=== PATIENT | female | born 1945 | race Caucasian/White ===

== ENCOUNTER 2018-09-09 01:21 | Inpatient (IN) ==
[2018-09-09] MEDS ORDERED: SODIUM CHLORIDE 0.9% 1,000 ML IV STA (01:48)
[2018-09-09 01:56] LABS: Basophils # 0.1 10*3/uL (0.0-0.2); Basophils % 0.2 % (0.0-0.8); Eosinophils # 0.8 10*3/uL (0.0-0.87); Eosinophils % 3.9 % (0.00-10.9); Hematocrit 22.6 VOL% (35.7-47.0); Hemoglobin 6.5 GM/DL (12.0-16.0); Immature Granulocytes % 1.8 %; Immature Granulocytes Absolute 0.37 #; Lymphocytes # 1.5 10*3/uL (1.4-4.0); Lymphocytes % 7.4 % (21.3-54.2); Mean Corpuscular HGB Conc 28.8 GM/DL (32-36); Mean Corpuscular Hemoglobin 29 PG (27-34); Mean Corpuscular Volume 100.4 FL (87-102); Monocytes # 1.1 10*3/uL (0.11-0.8); Monocytes % 5.3 % (1.7-12.7); Neutrophils # 16.5 10*3/uL (1.4-7.4); Neutrophils % 81.4 % (38.7-73.9); Platelet Count 234 T/CUMM (130-400); Red Blood Count 2.25 MC/CUMM (3.8-5.5); Red Cell Distribution Width 16.4 % (9.3-17.3); White Blood Count 20.3 T/CUMM (4-12)
[2018-09-09 02:03] LABS: INR 1.2; PT Patient Result 12.7 SECS
[2018-09-09 02:09] LABS: Allen Test Positive
[2018-09-09 02:09] LABS: Alanine Aminotransferase 13 U/L (13-56); Albumin 2.9 G/DL (3.4-5.0); Alkaline Phosphatase 73 U/L (45-117); Aspartate Amino Transferase 20 U/L (0-37); Bilirubin,Total < 0.39 MG/DL (0.2-1.0); Blood Urea Nitrogen 117 MG/DL (7-18); Calcium 7.9 MG/DL (8.5-10.1); Glucose 90 MG/DL (74-106); Osmolality,Calculated 322.8 MOS/KG (273-304); Sodium 144 MMOL/L (136-145); Total Protein 6.1 G/DL (6.4-8.3)
[2018-09-09 02:10] LABS: ABG Base Excess -14.8 MMOL/L (-2.5-2.5); ABG HCO3 12.8 MMOL/L (20-26); ABG Oxygen Saturation 94.5 % (95-100); ABG PCO2 49.2 MM HG (35-48); ABG PO2 89.9 MM HG (80-95); ABG TCO2 14.4 MMOL/L (23-27)
[2018-09-09 02:12] LABS: Potassium 7.6 MMOL/L (3.5-5.1)
[2018-09-09 02:13] LABS: ABG PH 7.076 (7.35-7.45)
[2018-09-09] MEDS ORDERED: DEXTROSE 50% 25 GM/50 ML VIAL IV STA (02:56)
[2018-09-09] MEDS ORDERED: INSULIN REGULAR 100 UNIT/ML IV STA (02:56)
[2018-09-09] MEDS ORDERED: LEVOFLOXACIN INJ 500 MG in PREMIX 1 EACH IV STA (02:57)
[2018-09-09] MEDS ORDERED: VANCOMYCIN INJ 750 MG in SODIUM CHLORIDE 0.9% 250 ML IV STA (02:57)
[2018-09-09] MEDS ORDERED: DEXTROSE 50% 25 GM/50 ML SYRINGE IV ONE (03:05)
[2018-09-09 03:24] LABS: Amorphous Crystals,Urine Moderate /HPF (Few); Apearance,Urine CLOUDY (Clear); Bacteria,Urine Many /HPF (Few); Bilirubin,Urine Negative (Negative); Blood, Urine Moderate mg/dL (Negative); Glucose,Urine (UA) 50 mg/dL (Negative); Ketones,Urine 5 mg/dL (Negative); Mucus,Urine Occasional /LPF (Occasional); Nitrite,Urine Negative (Negative); Protein,Urine 100 MG/DL; RBC,Urine 84 /HPF (0-4); Squamous Epithelial Cell,Urine Occasional /HPF (0-10); Urine Specific Gravity 1.012 (1.001-1.035); Urine Urobilinogen < 2.0 EU/DL (0.2-1.0); WBC,Urine 82 /HPF (0-6)
[2018-09-09 03:25] LABS: Urine Color Light Yellow (Yellow)
[2018-09-09] MEDS ORDERED: SODIUM BICARB INJ 100 MEQ in DEXTROSE 5% 1,000 ML IV SCH (03:30)
[2018-09-09 04:25] LABS: Hypochromasia 1+; Microcytosis 1+; Platelet Estimate Adequate
[2018-09-09] MEDS ORDERED: ALBUTEROL 2.5 MG/3 ML NEB RESP TX PRN (04:30)
[2018-09-09] MEDS ORDERED: ONDANSETRON 4 MG/2 ML VIAL IV PRN (04:45)
[2018-09-09] MEDS ORDERED: guaiFENesin/DM ER 600-30 MG TABLET PO PRN (04:45)
[2018-09-09] MEDS ORDERED: SODIUM CHLORIDE 0.9% 1,000 ML IV ONE (04:45)
[2018-09-09] MEDS ORDERED: diphenhydrAMINE CAP 25 MG CAPSULE PO PRN (04:45)
[2018-09-09] MEDS ORDERED: ACETAMINOPHEN 325 MG TABLET PO PRN (04:45)
[2018-09-09] MEDS ORDERED: SODIUM BICARBONATE 10 MEQ/10 ML SYRINGE IV ONE (04:45)
[2018-09-09] MEDS ORDERED: MORPHINE 4 MG/1 ML VIAL IV PRN (04:45)
[2018-09-09] MEDS ORDERED: NICOTINE 21 MG/24 HR PATCH TRANSDERM PRN (04:45)
[2018-09-09 05:34] LABS: Allen Test Positive; Pt O2 Delivery Device BIPAP
[2018-09-09 05:35] LABS: ABG Base Excess -12.1 MMOL/L (-2.5-2.5); ABG Oxygen Saturation 96.6 % (95-100); ABG PCO2 32.4 MM HG (35-48); ABG PH 7.254 (7.35-7.45); ABG PO2 100.9 MM HG (80-95)
[2018-09-09] MEDS ORDERED: SODIUM CHLORIDE 0.9% 1,000 ML IV PRN (06:16)
[2018-09-09] MEDS ORDERED: VANCOMYCIN INJ 1,000 MG in SODIUM CHLORIDE 0.9% 250 ML IV PRN (06:25)
[2018-09-09] MEDS ORDERED: SODIUM POLYSTYRENE SULFATE 15 GM/60 ML BOTTLE PO SCH (06:30)
[2018-09-09] MEDS ORDERED: SODIUM CHLORIDE 0.9% 1,000 ML IV SCH (06:30)
[2018-09-09 06:31] LABS: Basophils % 0.3 % (0.0-0.8); Eosinophils # 0.5 10*3/uL (0.0-0.87); Eosinophils % 3.5 % (0.00-10.9); Hematocrit 20.1 VOL% (35.7-47.0); Immature Granulocytes % 1.8 %; Immature Granulocytes Absolute 0.27 #; Lymphocytes # 1.3 10*3/uL (1.4-4.0); Lymphocytes % 8.6 % (21.3-54.2); Mean Corpuscular HGB Conc 29.9 GM/DL (32-36); Mean Corpuscular Hemoglobin 29 PG (27-34); Mean Corpuscular Volume 98.5 FL (87-102); Mean Platelet Volume 10.7 FL (9.6-12.0); Monocytes # 0.9 10*3/uL (0.11-0.8); Monocytes % 6.1 % (1.7-12.7); NRBC # 0.02 10*3/uL; Neutrophils # 11.7 10*3/uL (1.4-7.4); Neutrophils % 79.7 % (38.7-73.9); Red Blood Count 2.04 MC/CUMM (3.8-5.5); Red Cell Distribution Width 16.5 % (9.3-17.3); White Blood Count 14.7 T/CUMM (4-12)
[2018-09-09 06:35] LABS: Platelet Count 181 T/CUMM (130-400)
[2018-09-09] MEDS: ALBUTEROL/IPRATROPIUM 3 ML NEB RESP TX SCH ×5 (06:53→23:30)
[2018-09-09] MEDS ORDERED: VANCOMYCIN INJ 1,000 MG in SODIUM CHLORIDE 0.9% 250 ML IV SCH (07:30)
[2018-09-09 07:38] LABS: Sedimentation Rate-Westergren 30 MM/HR (0-30)
[2018-09-09] MEDS: cefTRIAXone 1,000 MG in SYRINGE 1 EACH IV SCH (09:00)
[2018-09-09] MEDS: AZITHROMYCIN INJ 500 MG in SODIUM CHLORIDE 0.9% 250 ML IV SCH (09:01)
[2018-09-09] MEDS: PANTOPRAZOLE 40 MG VIAL IV SCH (09:01)
[2018-09-09] MEDS ORDERED: SODIUM POLYSTYRENE SULFATE 15 GM/60 ML BOTTLE RECTAL ONE (09:26)
[2018-09-09] MEDS ORDERED: SODIUM POLYSTYRENE SULFATE 15 GM/60 ML BOTTLE PO PRN (09:28)
[2018-09-09] MEDS ORDERED: SODIUM POLYSTYRENE SULFATE 15 GM/60 ML BOTTLE RECTAL PRN (09:28)
[2018-09-09] MEDS ORDERED: SODIUM POLYSTYRENE SULFATE 15 GM/60 ML BOTTLE PO ONE (09:30)
[2018-09-09] MEDS ORDERED: SODIUM BICARB INJ 150 MEQ in DEXTROSE 5% 850 ML IV SCH (10:00)
[2018-09-09] MEDS ORDERED: VANCOMYCIN INJ 750 MG in SODIUM CHLORIDE 0.9% 250 ML IV ONE (10:00)
[2018-09-09 10:13] LABS: Calcium 7.5 MG/DL (8.5-10.1); Osmolality,Calculated 323.6 MOS/KG (273-304)
[2018-09-09 10:20] LABS: Potassium 6.5 MMOL/L (3.5-5.1)
[2018-09-09] MEDS ORDERED: FUROSEMIDE 100 MG/10 ML VIAL IV ONE ×2 (12:55)
[2018-09-09] MEDS: SODIUM BICARB INJ 150 MEQ in DEXTROSE 5% 850 ML IV SCH (14:07)
[2018-09-09 16:42] LABS: Folate 4.6 NG/ML (5.4-24.0); Vitamin B12 > 2000 PG/ML (211-911)
[2018-09-10 00:55] LABS: Basophils % 0.2 % (0.0-0.8); Eosinophils # 0.7 10*3/uL (0.0-0.87); Eosinophils % 4.6 % (0.00-10.9); Hematocrit 23.1 VOL% (35.7-47.0); Hemoglobin 6.8 GM/DL (12.0-16.0); Immature Granulocytes % 1.5 %; Immature Granulocytes Absolute 0.24 #; Lymphocytes # 0.8 10*3/uL (1.4-4.0); Lymphocytes % 4.8 % (21.3-54.2); Mean Corpuscular HGB Conc 29.4 GM/DL (32-36); Mean Corpuscular Hemoglobin 29 PG (27-34); Mean Corpuscular Volume 99.1 FL (87-102); Mean Platelet Volume 10.7 FL (9.6-12.0); Monocytes # 1.4 10*3/uL (0.11-0.8); Monocytes % 8.6 % (1.7-12.7); Neutrophils # 12.5 10*3/uL (1.4-7.4); Neutrophils % 80.3 % (38.7-73.9); Platelet Count 183 T/CUMM (130-400); Red Blood Count 2.33 MC/CUMM (3.8-5.5); Red Cell Distribution Width 15.8 % (9.3-17.3); White Blood Count 15.6 T/CUMM (4-12)
[2018-09-10 01:28] LABS: Alanine Aminotransferase 12 U/L (13-56); Albumin 2.7 G/DL (3.4-5.0); Alkaline Phosphatase 71 U/L (45-117); Aspartate Amino Transferase 10 U/L (0-37); Bilirubin,Total < 0.39 MG/DL (0.2-1.0); Blood Urea Nitrogen 109 MG/DL (7-18); Calcium 7.5 MG/DL (8.5-10.1); Glucose 106 MG/DL (74-106); Osmolality,Calculated 325.4 MOS/KG (273-304); Sodium 147 MMOL/L (136-145); Total Protein 5.2 G/DL (6.4-8.3)
[2018-09-10 01:39] LABS: Eosinophils 6 % (0-10); Lymphocytes 8 % (20-55); Segmented Neutrophils 78 % (50-85); Total Cells Counted 100
[2018-09-10 01:41] LABS: Hypochromasia Slight; Microcytosis 2+; Ovalocytes 2+
[2018-09-10 01:42] LABS: Platelet Estimate Normal; Potassium 5.8 MMOL/L (3.5-5.1)
[2018-09-10] MEDS: ALBUTEROL/IPRATROPIUM 3 ML NEB RESP TX SCH ×6 (02:47→23:32)
[2018-09-10 03:27] LABS: ABG Base Excess -10.4 MMOL/L (-2.5-2.5); ABG HCO3 16.1 MMOL/L (20-26); ABG PCO2 48.8 MM HG (35-48); ABG TCO2 17.2 MMOL/L (23-27); Allen Test Positive; Pt O2 Delivery Device BIPAP
[2018-09-10 03:53] LABS: ABG PH 7.169 (7.35-7.45)
[2018-09-10] MEDS: SODIUM BICARB INJ 150 MEQ in DEXTROSE 5% 850 ML IV SCH (05:26)
[2018-09-10] MEDS: cefTRIAXone 1,000 MG in SYRINGE 1 EACH IV SCH (05:39)
[2018-09-10] MEDS: AZITHROMYCIN INJ 500 MG in SODIUM CHLORIDE 0.9% 250 ML IV SCH (08:32)
[2018-09-10] MEDS: PANTOPRAZOLE 40 MG VIAL IV SCH (08:32)
[2018-09-10] MEDS ORDERED: SODIUM CHLORIDE 0.9% 1,000 ML IV PRN (10:28)
[2018-09-10 11:05] LABS: Hemoglobin A1 (Alkaline) 97.1 % (96.5-98.5); Hemoglobin A2 (Alkaline) 2.9 % (1.5-3.5)
[2018-09-10 16:31] LABS: ABG Base Excess -5.1 MMOL/L (-2.5-2.5); ABG HCO3 20.1 MMOL/L (20-26); ABG Oxygen Saturation 93.7 % (95-100); ABG PO2 84.2 MM HG (80-95); ABG TCO2 26.1 MMOL/L (23-27); Allen Test Positive; Pt O2 Delivery Device BIPAP
[2018-09-10 16:38] LABS: ABG PH 7.079 (7.35-7.45)
[2018-09-10 16:39] LABS: ABG PCO2 90.3 MM HG (35-48)
[2018-09-10] MEDS ORDERED: HEPARIN 10,000 UNIT/10 ML VIAL IV PRN (16:46)
[2018-09-11] MEDS: ALBUTEROL/IPRATROPIUM 3 ML NEB RESP TX SCH ×6 (03:40→23:37)
[2018-09-11] MEDS: cefTRIAXone 1,000 MG in SYRINGE 1 EACH IV SCH (06:18)
[2018-09-11 07:37] LABS: Basophils % 0.3 % (0.0-0.8); Eosinophils # 0.4 10*3/uL (0.0-0.87); Eosinophils % 2.9 % (0.00-10.9); Hematocrit 25.7 VOL% (35.7-47.0); Hemoglobin 7.7 GM/DL (12.0-16.0); Immature Granulocytes % 1.6 %; Immature Granulocytes Absolute 0.22 #; Lymphocytes # 0.9 10*3/uL (1.4-4.0); Lymphocytes % 6.5 % (21.3-54.2); Mean Corpuscular Hemoglobin 30 PG (27-34); Mean Corpuscular Volume 99.6 FL (87-102); Monocytes # 1.3 10*3/uL (0.11-0.8); Monocytes % 9.7 % (1.7-12.7); Neutrophils # 10.8 10*3/uL (1.4-7.4); Platelet Count 118 T/CUMM (130-400); Red Blood Count 2.58 MC/CUMM (3.8-5.5); White Blood Count 13.6 T/CUMM (4-12)
[2018-09-11 07:56] LABS: Calcium 7.7 MG/DL (8.5-10.1); Osmolality,Calculated 312.7 MOS/KG (273-304); Potassium 5.1 MMOL/L (3.5-5.1)
[2018-09-11] MEDS: PANTOPRAZOLE 40 MG VIAL IV SCH (09:53)
[2018-09-11] MEDS: SODIUM BICARB INJ 150 MEQ in DEXTROSE 5% 850 ML IV SCH (09:59)
[2018-09-11 11:14] LABS: Hepatitis A Ab IgM Quant 0.13 Index; Hepatitis A Ab IgM Result Negative (Negative); Hepatitis B Core IgM Quant 0.18 Index; Hepatitis B Core IgM Result Negative (Negative); Hepatitis B Surface Ag Quant < 0.10 Index; Hepatitis B Surface Ag Result Negative (Negative); Hepatitis C Virus Ab Quant 0.06 Index; Hepatitis C Virus Ab Result Negative (Negative)
[2018-09-12] MEDS: ALBUTEROL/IPRATROPIUM 3 ML NEB RESP TX SCH ×6 (02:29→23:32)
[2018-09-12 06:08] LABS: Basophils % 0.3 % (0.0-0.8); Eosinophils # 0.9 10*3/uL (0.0-0.87); Eosinophils % 7.3 % (0.00-10.9); Hematocrit 24.6 VOL% (35.7-47.0); Hemoglobin 7.4 GM/DL (12.0-16.0); Immature Granulocytes % 1.4 %; Immature Granulocytes Absolute 0.16 #; Lymphocytes # 1.1 10*3/uL (1.4-4.0); Lymphocytes % 9.4 % (21.3-54.2); Mean Corpuscular HGB Conc 30.1 GM/DL (32-36); Mean Corpuscular Hemoglobin 29 PG (27-34); Mean Corpuscular Volume 96.9 FL (87-102); Mean Platelet Volume 11.5 FL (9.6-12.0); Monocytes # 1.4 10*3/uL (0.11-0.8); Monocytes % 11.7 % (1.7-12.7); Neutrophils # 8.2 10*3/uL (1.4-7.4); Neutrophils % 69.9 % (38.7-73.9); Platelet Count 103 T/CUMM (130-400); Red Blood Count 2.54 MC/CUMM (3.8-5.5); Red Cell Distribution Width 15.3 % (9.3-17.3); White Blood Count 11.7 T/CUMM (4-12)
[2018-09-12] MEDS: cefTRIAXone 1,000 MG in SYRINGE 1 EACH IV SCH (06:25)
[2018-09-12 06:29] LABS: Calcium 7.5 MG/DL (8.5-10.1); Osmolality,Calculated 301.7 MOS/KG (273-304)
[2018-09-12 06:46] LABS: Microcytosis Slight; Platelet Estimate Decreased
[2018-09-12] MEDS ORDERED: GLUCAGON 1 MG VIAL IM PRN (07:00)
[2018-09-12] MEDS ORDERED: DEXTROSE 50% 25 GM/50 ML SYRINGE IV PRN (07:00)
[2018-09-12] MEDS ORDERED: DEXTROSE 50% 25 GM/50 ML SYRINGE IV ONE (07:01)
[2018-09-12] MEDS ORDERED: cloNIDine 0.1 MG TABLET PO PRN (07:54)
[2018-09-12] MEDS: amLODIPine 5 MG TABLET PO SCH (10:29)
[2018-09-12] MEDS: PANTOPRAZOLE 40 MG VIAL IV SCH (10:29)
[2018-09-13] MEDS: ALBUTEROL/IPRATROPIUM 3 ML NEB RESP TX SCH ×6 (03:55→23:35)
[2018-09-13 05:42] LABS: Basophils % 0.2 % (0.0-0.8); Eosinophils % 7.8 % (0.00-10.9); Hematocrit 26.8 VOL% (35.7-47.0); Immature Granulocytes % 1.2 %; Immature Granulocytes Absolute 0.15 #; Lymphocytes # 0.9 10*3/uL (1.4-4.0); Lymphocytes % 7.2 % (21.3-54.2); Mean Corpuscular HGB Conc 29.9 GM/DL (32-36); Mean Corpuscular Hemoglobin 29 PG (27-34); Mean Corpuscular Volume 97.1 FL (87-102); Mean Platelet Volume 11.7 FL (9.6-12.0); Monocytes # 1.3 10*3/uL (0.11-0.8); Monocytes % 10.5 % (1.7-12.7); Neutrophils # 9.4 10*3/uL (1.4-7.4); Neutrophils % 73.1 % (38.7-73.9); Platelet Count 119 T/CUMM (130-400); Red Blood Count 2.76 MC/CUMM (3.8-5.5); Red Cell Distribution Width 15.2 % (9.3-17.3); White Blood Count 12.8 T/CUMM (4-12)
[2018-09-13 06:01] LABS: Calcium 7.6 MG/DL (8.5-10.1); Osmolality,Calculated 308.7 MOS/KG (273-304); Potassium 3.8 MMOL/L (3.5-5.1)
[2018-09-13] MEDS: cefTRIAXone 1,000 MG in SYRINGE 1 EACH IV SCH (06:10)
[2018-09-13] MEDS: PANTOPRAZOLE 40 MG VIAL IV SCH (09:41)
[2018-09-13] MEDS: amLODIPine 5 MG TABLET PO SCH (09:41)
[2018-09-14] MEDS: ALBUTEROL/IPRATROPIUM 3 ML NEB RESP TX SCH ×6 (03:57→23:35)
[2018-09-14 07:48] LABS: Basophils % 0.3 % (0.0-0.8); Eosinophils # 1.1 10*3/uL (0.0-0.87); Eosinophils % 8.6 % (0.00-10.9); Hematocrit 24.9 VOL% (35.7-47.0); Hemoglobin 7.6 GM/DL (12.0-16.0); Immature Granulocytes % 1.3 %; Immature Granulocytes Absolute 0.17 #; Lymphocytes # 0.9 10*3/uL (1.4-4.0); Mean Corpuscular HGB Conc 30.5 GM/DL (32-36); Mean Corpuscular Hemoglobin 30 PG (27-34); Mean Corpuscular Volume 96.9 FL (87-102); Monocytes # 1.5 10*3/uL (0.11-0.8); Monocytes % 11.6 % (1.7-12.7); Neutrophils # 9.5 10*3/uL (1.4-7.4); Neutrophils % 71.2 % (38.7-73.9); Platelet Count 107 T/CUMM (130-400); Red Blood Count 2.57 MC/CUMM (3.8-5.5); Red Cell Distribution Width 14.9 % (9.3-17.3); White Blood Count 13.3 T/CUMM (4-12)
[2018-09-14 08:06] LABS: Calcium 7.7 MG/DL (8.5-10.1); Osmolality,Calculated 288.3 MOS/KG (273-304); Potassium 3.9 MMOL/L (3.5-5.1)
[2018-09-14] MEDS: PANTOPRAZOLE 40 MG TABLET PO SCH (08:59)
[2018-09-14] MEDS: amLODIPine 5 MG TABLET PO SCH (08:59)
[2018-09-14] MEDS ORDERED: FUROSEMIDE 100 MG/10 ML VIAL IV ONE (10:30)
[2018-09-15] MEDS: ALBUTEROL/IPRATROPIUM 3 ML NEB RESP TX SCH ×6 (03:22→23:47)
[2018-09-15 05:51] LABS: Basophils % 0.2 % (0.0-0.8); Eosinophils # 1.1 10*3/uL (0.0-0.87); Hematocrit 32.5 VOL% (35.7-47.0); Hemoglobin 10.1 GM/DL (12.0-16.0); Immature Granulocytes % 1.3 %; Immature Granulocytes Absolute 0.16 #; Lymphocytes % 8.3 % (21.3-54.2); Mean Corpuscular HGB Conc 31.1 GM/DL (32-36); Mean Corpuscular Hemoglobin 29 PG (27-34); Mean Corpuscular Volume 92.6 FL (87-102); Mean Platelet Volume 10.9 FL (9.6-12.0); Monocytes # 1.5 10*3/uL (0.11-0.8); Monocytes % 12.1 % (1.7-12.7); Neutrophils # 8.4 10*3/uL (1.4-7.4); Neutrophils % 69.1 % (38.7-73.9); Platelet Count 112 T/CUMM (130-400); Red Blood Count 3.51 MC/CUMM (3.8-5.5); White Blood Count 12.2 T/CUMM (4-12)
[2018-09-15 06:11] LABS: Calcium 8.3 MG/DL (8.5-10.1); Osmolality,Calculated 278.5 MOS/KG (273-304); Potassium 3.6 MMOL/L (3.5-5.1)
[2018-09-15] MEDS: PANTOPRAZOLE 40 MG TABLET PO SCH ×2 (07:57→12:50)
[2018-09-15] MEDS: amLODIPine 5 MG TABLET PO SCH ×2 (07:57→12:50)
[2018-09-16] MEDS: ALBUTEROL/IPRATROPIUM 3 ML NEB RESP TX SCH ×6 (03:02→23:40)
[2018-09-16 05:33] LABS: Basophils % 0.3 % (0.0-0.8); Eosinophils % 8.4 % (0.00-10.9); Hematocrit 32.7 VOL% (35.7-47.0); Hemoglobin 9.6 GM/DL (12.0-16.0); Immature Granulocytes % 0.7 %; Immature Granulocytes Absolute 0.08 #; Lymphocytes # 1.1 10*3/uL (1.4-4.0); Lymphocytes % 9.2 % (21.3-54.2); Mean Corpuscular HGB Conc 29.4 GM/DL (32-36); Mean Corpuscular Hemoglobin 28 PG (27-34); Mean Corpuscular Volume 95.3 FL (87-102); Mean Platelet Volume 11.8 FL (9.6-12.0); Monocytes # 1.6 10*3/uL (0.11-0.8); Monocytes % 12.9 % (1.7-12.7); Neutrophils # 8.3 10*3/uL (1.4-7.4); Neutrophils % 68.5 % (38.7-73.9); Platelet Count 129 T/CUMM (130-400); Red Blood Count 3.43 MC/CUMM (3.8-5.5); Red Cell Distribution Width 16.3 % (9.3-17.3); White Blood Count 12.1 T/CUMM (4-12)
[2018-09-16 06:02] LABS: Calcium 8.2 MG/DL (8.5-10.1); Osmolality,Calculated 282.3 MOS/KG (273-304); Potassium 3.6 MMOL/L (3.5-5.1)
[2018-09-16] MEDS: amLODIPine 5 MG TABLET PO SCH (09:41)
[2018-09-16] MEDS: PANTOPRAZOLE 40 MG TABLET PO SCH (09:41)
[2018-09-17] MEDS: ALBUTEROL/IPRATROPIUM 3 ML NEB RESP TX SCH ×6 (03:40→23:55)
[2018-09-17 05:51] LABS: Basophils # 0.1 10*3/uL (0.0-0.2); Basophils % 0.4 % (0.0-0.8); Eosinophils # 1.1 10*3/uL (0.0-0.87); Hematocrit 33.4 VOL% (35.7-47.0); Hemoglobin 9.8 GM/DL (12.0-16.0); Immature Granulocytes % 0.9 %; Immature Granulocytes Absolute 0.13 #; Lymphocytes # 1.4 10*3/uL (1.4-4.0); Lymphocytes % 9.8 % (21.3-54.2); Mean Corpuscular HGB Conc 29.3 GM/DL (32-36); Mean Corpuscular Hemoglobin 28 PG (27-34); Mean Corpuscular Volume 96.8 FL (87-102); Mean Platelet Volume 10.6 FL (9.6-12.0); Monocytes # 1.6 10*3/uL (0.11-0.8); Monocytes % 11.4 % (1.7-12.7); Neutrophils # 9.7 10*3/uL (1.4-7.4); Neutrophils % 69.5 % (38.7-73.9); Platelet Count 140 T/CUMM (130-400); Red Blood Count 3.45 MC/CUMM (3.8-5.5); Red Cell Distribution Width 16.2 % (9.3-17.3)
[2018-09-17 06:13] LABS: Calcium 8.3 MG/DL (8.5-10.1); Potassium 4.1 MMOL/L (3.5-5.1)
[2018-09-17] MEDS: methylPREDNISolone SOD SUC 40 MG/1 ML VIAL IV SCH ×2 (10:01→18:01)
[2018-09-17] MEDS: PANTOPRAZOLE 40 MG TABLET PO SCH (10:01)
[2018-09-17] MEDS: amLODIPine 5 MG TABLET PO SCH (10:01)
[2018-09-18] MEDS: methylPREDNISolone SOD SUC 40 MG/1 ML VIAL IV SCH ×3 (01:02→16:18)
[2018-09-18] MEDS: ALBUTEROL/IPRATROPIUM 3 ML NEB RESP TX SCH ×6 (03:26→23:14)
[2018-09-18 05:43] LABS: Calcium 8.8 MG/DL (8.5-10.1); Osmolality,Calculated 289.4 MOS/KG (273-304); Potassium 4.6 MMOL/L (3.5-5.1)
[2018-09-18] MEDS: PANTOPRAZOLE 40 MG TABLET PO SCH (09:10)
[2018-09-18] MEDS: amLODIPine 5 MG TABLET PO SCH (09:10)
[2018-09-19] MEDS: methylPREDNISolone SOD SUC 40 MG/1 ML VIAL IV SCH ×2 (01:07→09:06)
[2018-09-19] MEDS: ALBUTEROL/IPRATROPIUM 3 ML NEB RESP TX SCH ×6 (03:30→23:21)
[2018-09-19 05:23] LABS: Calcium 8.9 MG/DL (8.5-10.1); Osmolality,Calculated 301.5 MOS/KG (273-304); Potassium 4.6 MMOL/L (3.5-5.1)
[2018-09-19] MEDS: PANTOPRAZOLE 40 MG TABLET PO SCH (09:03)
[2018-09-19] MEDS: amLODIPine 5 MG TABLET PO SCH (09:03)
[2018-09-19 20:24] LABS: Apearance,Urine CLEAR (Clear); Bilirubin,Urine Negative (Negative); Blood, Urine Negative (Negative); Glucose,Urine (UA) >=500 mg/dL (Negative); Ketones,Urine Negative (Negative); Nitrite,Urine Negative (Negative); Protein,Urine >=500 MG/DL; RBC,Urine 1 /HPF (0-4); Squamous Epithelial Cell,Urine Occasional /HPF (0-10); Urine Color Yellow (Yellow); Urine Specific Gravity 1.009 (1.001-1.035); Urine Urobilinogen < 2.0 EU/DL (0.2-1.0); WBC,Urine 2 /HPF (0-6)
[2018-09-20] MEDS: ALBUTEROL/IPRATROPIUM 3 ML NEB RESP TX SCH ×6 (03:30→23:41)
[2018-09-20 05:59] LABS: Calcium 8.3 MG/DL (8.5-10.1); Osmolality,Calculated 293.5 MOS/KG (273-304); Potassium 3.9 MMOL/L (3.5-5.1)
[2018-09-20] MEDS ORDERED: predniSONE 20 MG TABLET PO SCH (09:00)
[2018-09-20] MEDS ORDERED: LIDOCAINE 1%/EPI INJ 20 ML VIAL ONE (11:14)
[2018-09-20] MEDS ORDERED: HEPARIN 5,000 UNIT/1 ML VIAL ONE (11:14)
[2018-09-20] MEDS ORDERED: ceFAZolin 1,000 MG VIAL ONE (11:45)
[2018-09-20] MEDS ORDERED: ONDANSETRON 4 MG/2 ML VIAL ONE (12:26)
[2018-09-20] MEDS ORDERED: KETAMINE 500 MG/10 ML VIAL ONE (12:26)
[2018-09-20] MEDS ORDERED: MIDAZOLAM 2 MG/2 ML VIAL ONE (12:26)
[2018-09-20] MEDS: PANTOPRAZOLE 40 MG TABLET PO SCH (13:17)
[2018-09-20] MEDS: amLODIPine 5 MG TABLET PO SCH (13:17)
[2018-09-21] MEDS: ALBUTEROL/IPRATROPIUM 3 ML NEB RESP TX SCH ×6 (03:07→23:06)
[2018-09-21 05:20] LABS: Calcium 7.8 MG/DL (8.5-10.1); Osmolality,Calculated 307.5 MOS/KG (273-304); Potassium 5.3 MMOL/L (3.5-5.1)
[2018-09-21] MEDS: PANTOPRAZOLE 40 MG TABLET PO SCH (14:49)
[2018-09-21] MEDS: predniSONE 20 MG TABLET PO SCH (14:49)
[2018-09-21] MEDS: MULTIVITAMIN (OCUVITE) TABLET PO SCH (14:49)
[2018-09-21] MEDS: CYANOCOBALAMIN 100 MCG TABLET PO SCH (14:49)
[2018-09-21] MEDS: ALLOPURINOL 100 MG TABLET PO SCH (14:49)
[2018-09-21] MEDS: amLODIPine 5 MG TABLET PO SCH (14:49)
[2018-09-22] MEDS: ALBUTEROL/IPRATROPIUM 3 ML NEB RESP TX SCH ×6 (03:01→23:25)
[2018-09-22 06:52] LABS: Calcium 8.1 MG/DL (8.5-10.1); Osmolality,Calculated 290.5 MOS/KG (273-304); Potassium 4.8 MMOL/L (3.5-5.1)
[2018-09-22] MEDS: ALLOPURINOL 100 MG TABLET PO SCH (08:55)
[2018-09-22] MEDS: predniSONE 20 MG TABLET PO SCH (08:55)
[2018-09-22] MEDS: amLODIPine 5 MG TABLET PO SCH (08:55)
[2018-09-22] MEDS: CYANOCOBALAMIN 100 MCG TABLET PO SCH (08:55)
[2018-09-22] MEDS: PANTOPRAZOLE 40 MG TABLET PO SCH (08:55)
[2018-09-22] MEDS: MULTIVITAMIN (OCUVITE) TABLET PO SCH (08:55)
[2018-09-23] MEDS: ALBUTEROL/IPRATROPIUM 3 ML NEB RESP TX SCH ×6 (02:53→23:40)
[2018-09-23 06:37] LABS: Calcium 7.6 MG/DL (8.5-10.1); Osmolality,Calculated 305.5 MOS/KG (273-304)
[2018-09-23] MEDS: amLODIPine 5 MG TABLET PO SCH (08:33)
[2018-09-23] MEDS: CYANOCOBALAMIN 100 MCG TABLET PO SCH (08:33)
[2018-09-23] MEDS: predniSONE 20 MG TABLET PO SCH (08:33)
[2018-09-23] MEDS: ALLOPURINOL 100 MG TABLET PO SCH (08:33)
[2018-09-23] MEDS: MULTIVITAMIN (OCUVITE) TABLET PO SCH (08:33)
[2018-09-23] MEDS: PANTOPRAZOLE 40 MG TABLET PO SCH (08:33)
[2018-09-24] MEDS: ALBUTEROL/IPRATROPIUM 3 ML NEB RESP TX SCH ×6 (03:23→23:23)
[2018-09-24 05:41] LABS: Osmolality,Calculated 316.5 MOS/KG (273-304); Potassium 5.6 MMOL/L (3.5-5.1)
[2018-09-24] MEDS: ALLOPURINOL 100 MG TABLET PO SCH (09:41)
[2018-09-24] MEDS: predniSONE 20 MG TABLET PO SCH (09:41)
[2018-09-24] MEDS: PANTOPRAZOLE 40 MG TABLET PO SCH (09:41)
[2018-09-24] MEDS: amLODIPine 5 MG TABLET PO SCH (09:41)
[2018-09-24] MEDS: CYANOCOBALAMIN 100 MCG TABLET PO SCH (09:41)
[2018-09-24] MEDS: MULTIVITAMIN (OCUVITE) TABLET PO SCH (09:41)
[2018-09-25] MEDS: ALBUTEROL/IPRATROPIUM 3 ML NEB RESP TX SCH ×6 (03:44→23:10)
[2018-09-25 05:45] LABS: Calcium 8.1 MG/DL (8.5-10.1); Osmolality,Calculated 298.1 MOS/KG (273-304); Potassium 4.6 MMOL/L (3.5-5.1)
[2018-09-25] MEDS: predniSONE 10 MG TABLET PO SCH (10:03)
[2018-09-25] MEDS: PANTOPRAZOLE 40 MG TABLET PO SCH (10:04)
[2018-09-25] MEDS: MULTIVITAMIN (OCUVITE) TABLET PO SCH (10:04)
[2018-09-25] MEDS: ALLOPURINOL 100 MG TABLET PO SCH (10:04)
[2018-09-25] MEDS: CYANOCOBALAMIN 100 MCG TABLET PO SCH (10:04)
[2018-09-25] MEDS: amLODIPine 5 MG TABLET PO SCH (10:04)
[2018-09-26] MEDS: ALBUTEROL/IPRATROPIUM 3 ML NEB RESP TX SCH ×6 (03:05→23:02)
[2018-09-26 05:56] LABS: Calcium 8.4 MG/DL (8.5-10.1); Osmolality,Calculated 310.1 MOS/KG (273-304)
[2018-09-26] MEDS: MULTIVITAMIN (OCUVITE) TABLET PO SCH (09:04)
[2018-09-26] MEDS: CYANOCOBALAMIN 100 MCG TABLET PO SCH (09:04)
[2018-09-26] MEDS: ALLOPURINOL 100 MG TABLET PO SCH (09:04)
[2018-09-26] MEDS: PANTOPRAZOLE 40 MG TABLET PO SCH (09:05)
[2018-09-26] MEDS: predniSONE 10 MG TABLET PO SCH (09:05)
[2018-09-26] MEDS: amLODIPine 5 MG TABLET PO SCH (09:05)
[2018-09-27] MEDS: ALBUTEROL/IPRATROPIUM 3 ML NEB RESP TX SCH ×3 (02:32→11:50)
[2018-09-27 06:01] LABS: Calcium 8.3 MG/DL (8.5-10.1); Potassium 4.3 MMOL/L (3.5-5.1)
[2018-09-27] MEDS: MULTIVITAMIN (OCUVITE) TABLET PO SCH (08:57)
[2018-09-27] MEDS: predniSONE 10 MG TABLET PO SCH (08:57)
[2018-09-27] MEDS: CYANOCOBALAMIN 100 MCG TABLET PO SCH (08:57)
[2018-09-27] MEDS: amLODIPine 5 MG TABLET PO SCH (08:57)
[2018-09-27] MEDS: PANTOPRAZOLE 40 MG TABLET PO SCH (08:57)
[2018-09-27] MEDS: ALLOPURINOL 100 MG TABLET PO SCH (08:57)
[2018-09-27 11:38] VITALS: BP 158/79
== END 2018-09-27 13:11 | DRG 291 ==
LOC: EDBD → EDUNIT# → N.ED 01:21 → N.EDINP 04:30 → SUATTDRO 04:30 → N.CC 06:10 → N.2E 09-12 16:50
PROVIDERS: ADMIT Internal Medicine; ATTEND Internal Medicine

== ENCOUNTER 2019-03-24 09:25 | Inpatient (IN) ==
[2019-03-24] MEDS ORDERED: LORazepam 2 MG/1 ML VIAL ONE (09:30)
[2019-03-24] MEDS ORDERED: LORazepam 2 MG/1 ML VIAL IV STA (09:50)
[2019-03-24] MEDS ORDERED: levETIRAcetam 500 MG/5 ML VIAL IV ONE (09:54)
[2019-03-24 09:55] LABS: Calcium 9.8 MG/DL (8.5-10.1); Osmolality,Calculated 314.3 MOS/KG (273-304)
[2019-03-24 10:11] LABS: Basophils # 0.1 10*3/uL (0.0-0.2); Basophils % 0.4 % (0.0-0.8); Eosinophils # 0.2 10*3/uL (0.0-0.87); Eosinophils % 1.2 % (0.00-10.9); Immature Granulocytes % 0.8 %; Immature Granulocytes Absolute 0.17 #; Lymphocytes # 5.6 10*3/uL (1.4-4.0); Lymphocytes % 27.6 % (21.3-54.2); Mean Corpuscular HGB Conc 30.2 GM/DL (32-36); Mean Corpuscular Volume 99.8 FL (87-102); Mean Platelet Volume 9.2 FL (9.6-12.0); Monocytes % 6.1 % (1.7-12.7); Neutrophils % 63.9 % (38.7-73.9); Platelet Count 194 T/CUMM (130-400); Red Blood Count 4.91 MC/CUMM (3.8-5.5); Red Cell Distribution Width 17.3 % (9.3-17.3); White Blood Count 20.3 T/CUMM (4-12)
[2019-03-24 10:12] LABS: Hemoglobin 14.8 GM/DL (12.0-16.0)
[2019-03-24 10:15] LABS: Atypical Lymphocytes Few; Lymphocytes 25 % (20-55); Segmented Neutrophils 71 % (50-85); Total Cells Counted 100
[2019-03-24 10:16] LABS: Microcytosis 1+
[2019-03-24 10:17] LABS: Ovalocytes Slight; Platelet Estimate Adequate
[2019-03-24] MEDS ORDERED: cefTRIAXone 2,000 MG in SODIUM CHLORIDE 0.9% 100 ML IV ONE (10:38)
[2019-03-24] MEDS ORDERED: cefTRIAXone 1,000 MG VIAL ONE (10:41)
[2019-03-24] MEDS ORDERED: ACETAMINOPHEN 325 MG TABLET PO PRN (11:28)
[2019-03-24] MEDS ORDERED: DEXTROSE 50% 25 GM/50 ML VIAL IV PRN (11:55)
[2019-03-24] MEDS ORDERED: GLUCAGON 1 MG VIAL IM PRN (11:55)
[2019-03-24 12:09] LABS: Risk Ratio 2.98; Thyroid Stimulating Hormone 3.72 uIU/ml (0.358-3.74); VLDL CHOLESTEROL 43.4 MG/DL
[2019-03-24 12:52] LABS: Appearance,CSF Clear; Red Blood Cell,CSF 32 C/CUMM; White Blood Cell,CSF 4 C/CUMM
[2019-03-24 12:53] LABS: Lymphocytes,CSF 73 %; Monocytes,CSF 21 %; Neutrophils,CSF 6 %
[2019-03-24] MEDS: HEPARIN 5,000 UNIT/1 ML VIAL SUBCUT SCH ×2 (13:14→21:10)
[2019-03-24] MEDS: hydrALAZINE 20 MG/1 ML VIAL IV PRN (13:14)
[2019-03-24] MEDS: LORazepam 2 MG/1 ML VIAL IV PRN (16:10)
[2019-03-24] MEDS: ACYCLOVIR INJ 500 MG in SODIUM CHLORIDE 0.9% 100 ML IV SCH ×2 (16:35→21:10)
[2019-03-24] MEDS: INSULIN REGULAR 100 UNIT/ML SUBCUT SCH ×2 (18:09→21:08)
[2019-03-25] MEDS: DEXTROSE 10% 250 ML BAG IV PRN ×2 (03:04→10:13)
[2019-03-25] MEDS: LORazepam 2 MG/1 ML VIAL IV PRN ×2 (03:08→03:10)
[2019-03-25] MEDS ORDERED: LORazepam 2 MG/1 ML VIAL IV PRN (04:37)
[2019-03-25] MEDS: ACYCLOVIR INJ 500 MG in SODIUM CHLORIDE 0.9% 100 ML IV SCH (04:50)
[2019-03-25] MEDS: HEPARIN 5,000 UNIT/1 ML VIAL SUBCUT SCH ×3 (04:50→21:25)
[2019-03-25 05:13] LABS: Basophils # 0.1 10*3/uL (0.0-0.2); Basophils % 0.4 % (0.0-0.8); Eosinophils # 0.2 10*3/uL (0.0-0.87); Eosinophils % 1.2 % (0.00-10.9); Hematocrit 39.8 VOL% (35.7-47.0); Immature Granulocytes % 0.7 %; Immature Granulocytes Absolute 0.12 #; Lymphocytes # 1.2 10*3/uL (1.4-4.0); Lymphocytes % 6.7 % (21.3-54.2); Mean Corpuscular HGB Conc 30.2 GM/DL (32-36); Mean Corpuscular Volume 100.5 FL (87-102); Mean Platelet Volume 9.6 FL (9.6-12.0); Monocytes % 8.9 % (1.7-12.7); Neutrophils % 82.1 % (38.7-73.9); Platelet Count 163 T/CUMM (130-400); Red Blood Count 3.96 MC/CUMM (3.8-5.5); Red Cell Distribution Width 17.2 % (9.3-17.3); White Blood Count 17.2 T/CUMM (4-12)
[2019-03-25 05:19] LABS: Albumin 2.7 G/DL (3.4-5.0); Bilirubin,Total 0.7 MG/DL (0.2-1.0); Calcium 9.4 MG/DL (8.5-10.1); Total Protein 5.6 G/DL (6.4-8.3)
[2019-03-25] MEDS: INSULIN REGULAR 100 UNIT/ML SUBCUT SCH ×4 (08:54→21:24)
[2019-03-25 11:45] LABS: Hepatitis B Surface Ag Quant < 0.10 Index; Hepatitis B Surface Ag Result Negative (Negative)
[2019-03-25] MEDS ORDERED: HEPARIN 10,000 UNIT/10 ML VIAL IV SCH (12:30)
[2019-03-25] MEDS: ONDANSETRON 4 MG/2 ML VIAL IV PRN (22:02)
[2019-03-25] MEDS: hydrALAZINE 20 MG/1 ML VIAL IV PRN (23:25)
[2019-03-26] MEDS: HEPARIN 5,000 UNIT/1 ML VIAL SUBCUT SCH ×3 (03:58→20:31)
[2019-03-26 04:45] LABS: ABG Base Excess 0.3 MMOL/L (-2.5-2.5); ABG HCO3 24.7 MMOL/L (20-26); ABG Oxygen Saturation 99.3 % (95-100); ABG PCO2 39.2 MM HG (35-48); ABG PH 7.409 (7.35-7.45); ABG TCO2 21.6 MMOL/L (23-27); Allen Test Positive
[2019-03-26] MEDS ORDERED: ACYCLOVIR INJ 300 MG in SODIUM CHLORIDE 0.9% 100 ML IV SCH (05:00)
[2019-03-26 05:18] LABS: Basophils # 0.1 10*3/uL (0.0-0.2); Basophils % 0.3 % (0.0-0.8); Eosinophils # 0.3 10*3/uL (0.0-0.87); Eosinophils % 1.8 % (0.00-10.9); Hematocrit 41.8 VOL% (35.7-47.0); Hemoglobin 12.9 GM/DL (12.0-16.0); Immature Granulocytes % 0.7 %; Immature Granulocytes Absolute 0.11 #; Lymphocytes # 1.7 10*3/uL (1.4-4.0); Lymphocytes % 10.4 % (21.3-54.2); Mean Corpuscular HGB Conc 30.9 GM/DL (32-36); Mean Corpuscular Volume 99.1 FL (87-102); Mean Platelet Volume 9.2 FL (9.6-12.0); Monocytes % 9.2 % (1.7-12.7); Neutrophils % 77.6 % (38.7-73.9); Platelet Count 171 T/CUMM (130-400); Red Blood Count 4.22 MC/CUMM (3.8-5.5); Red Cell Distribution Width 17.5 % (9.3-17.3); White Blood Count 15.8 T/CUMM (4-12)
[2019-03-26 05:36] LABS: Calcium 9.1 MG/DL (8.5-10.1); Osmolality,Calculated 294.1 MOS/KG (273-304)
[2019-03-26 06:00] LABS: Prealbumin 22.6 MG/DL (20-40)
[2019-03-26] MEDS: INSULIN REGULAR 100 UNIT/ML SUBCUT SCH ×4 (08:00→20:33)
[2019-03-26] MEDS: METOPROLOL TARTRATE 25 MG TABLET PO SCH ×2 (09:54→20:31)
[2019-03-26 13:51] LABS: Specimen Source CSF
[2019-03-26] MEDS: ONDANSETRON 4 MG/2 ML VIAL IV PRN (14:54)
[2019-03-27 04:32] LABS: Basophils # 0.1 10*3/uL (0.0-0.2); Basophils % 0.4 % (0.0-0.8); Eosinophils # 0.3 10*3/uL (0.0-0.87); Eosinophils % 2.1 % (0.00-10.9); Hematocrit 40.8 VOL% (35.7-47.0); Hemoglobin 12.3 GM/DL (12.0-16.0); Immature Granulocytes % 0.6 %; Immature Granulocytes Absolute 0.08 #; Lymphocytes # 1.6 10*3/uL (1.4-4.0); Lymphocytes % 11.3 % (21.3-54.2); Mean Corpuscular HGB Conc 30.1 GM/DL (32-36); Mean Corpuscular Volume 101.2 FL (87-102); Mean Platelet Volume 9.7 FL (9.6-12.0); Monocytes % 8.6 % (1.7-12.7); Platelet Count 166 T/CUMM (130-400); Red Blood Count 4.03 MC/CUMM (3.8-5.5); Red Cell Distribution Width 17.2 % (9.3-17.3); White Blood Count 14.2 T/CUMM (4-12)
[2019-03-27] MEDS: HEPARIN 5,000 UNIT/1 ML VIAL SUBCUT SCH ×3 (04:36→20:41)
[2019-03-27 04:53] LABS: Calcium 8.9 MG/DL (8.5-10.1)
[2019-03-27] MEDS: INSULIN REGULAR 100 UNIT/ML SUBCUT SCH ×4 (07:19→21:38)
[2019-03-27] MEDS: METOPROLOL TARTRATE 25 MG TABLET PO SCH ×3 (10:00→20:41)
[2019-03-28 05:19] LABS: Basophils # 0.1 10*3/uL (0.0-0.2); Basophils % 0.4 % (0.0-0.8); Eosinophils # 0.3 10*3/uL (0.0-0.87); Hemoglobin 12.5 GM/DL (12.0-16.0); Immature Granulocytes % 0.6 %; Immature Granulocytes Absolute 0.08 #; Lymphocytes # 1.9 10*3/uL (1.4-4.0); Lymphocytes % 13.7 % (21.3-54.2); Mean Corpuscular HGB Conc 30.5 GM/DL (32-36); Mean Corpuscular Volume 99.5 FL (87-102); Mean Platelet Volume 10.3 FL (9.6-12.0); Monocytes % 8.1 % (1.7-12.7); Neutrophils % 75.2 % (38.7-73.9); Platelet Count 145 T/CUMM (130-400); Red Blood Count 4.12 MC/CUMM (3.8-5.5); White Blood Count 13.5 T/CUMM (4-12)
[2019-03-28] MEDS: HEPARIN 5,000 UNIT/1 ML VIAL SUBCUT SCH ×3 (05:22→21:17)
[2019-03-28 05:42] LABS: Calcium 8.8 MG/DL (8.5-10.1); Osmolality,Calculated 284.5 MOS/KG (273-304)
[2019-03-28] MEDS: INSULIN REGULAR 100 UNIT/ML SUBCUT SCH ×4 (09:50→21:06)
[2019-03-28] MEDS: METOPROLOL TARTRATE 25 MG TABLET PO SCH ×2 (09:50→21:17)
[2019-03-28] MEDS ORDERED: ceFAZolin 1,000 MG in SYRINGE 1 EACH IV ONE (10:57)
[2019-03-28] MEDS ORDERED: HEPARIN 5,000 UNIT/1 ML VIAL ONE (15:12)
[2019-03-28] MEDS ORDERED: BUPIVACAINE MPF 0.25% /EPI 30 ML VIAL ONE (15:13)
[2019-03-28] MEDS ORDERED: LIDOCAINE 1% 20 ML VIAL ONE (15:13)
[2019-03-28] MEDS ORDERED: PROPOFOL 200 MG/20 ML VIAL IV ONE (16:41)
[2019-03-28] MEDS ORDERED: fentaNYL 100 MCG/2 ML VIAL ONE (16:41)
[2019-03-28] MEDS ORDERED: SODIUM CHLORIDE 0.9% 100 ML IV ONE (16:41)
[2019-03-28] MEDS: VALPROIC ACID INJ 750 MG in SODIUM CHLORIDE 0.9% 100 ML IV SCH (18:57)
[2019-03-28] MEDS: DEXTROSE 10% 250 ML BAG IV PRN (21:27)
[2019-03-29] MEDS: VALPROIC ACID INJ 750 MG in SODIUM CHLORIDE 0.9% 100 ML IV SCH ×3 (01:28→17:23)
[2019-03-29] MEDS: HEPARIN 5,000 UNIT/1 ML VIAL SUBCUT SCH ×3 (05:10→20:53)
[2019-03-29 06:45] LABS: Calcium 8.6 MG/DL (8.5-10.1)
[2019-03-29 06:56] LABS: Basophils # 0.1 10*3/uL (0.0-0.2); Basophils % 0.5 % (0.0-0.8); Eosinophils # 0.4 10*3/uL (0.0-0.87); Eosinophils % 2.4 % (0.00-10.9); Hematocrit 42.8 VOL% (35.7-47.0); Immature Granulocytes Absolute 0.15 #; Lymphocytes # 2.5 10*3/uL (1.4-4.0); Lymphocytes % 17.5 % (21.3-54.2); Mean Corpuscular HGB Conc 29.7 GM/DL (32-36); Mean Corpuscular Volume 101.7 FL (87-102); Mean Platelet Volume 9.5 FL (9.6-12.0); Monocytes % 7.2 % (1.7-12.7); Neutrophils % 71.4 % (38.7-73.9); Platelet Count 179 T/CUMM (130-400); Red Blood Count 4.21 MC/CUMM (3.8-5.5); Red Cell Distribution Width 17.1 % (9.3-17.3); White Blood Count 14.3 T/CUMM (4-12)
[2019-03-29 06:59] LABS: Hemoglobin 12.7 GM/DL (12.0-16.0)
[2019-03-29] MEDS: INSULIN REGULAR 100 UNIT/ML SUBCUT SCH ×4 (07:28→20:53)
[2019-03-29] MEDS ORDERED: LORazepam 2 MG/1 ML VIAL ONE (08:07)
[2019-03-29] MEDS: METOPROLOL TARTRATE 25 MG TABLET PO SCH ×2 (08:19→20:53)
[2019-03-29] MEDS: SEVELAMER CARBONATE 800 MG TABLET PO SCH (17:23)
[2019-03-30] MEDS: VALPROIC ACID INJ 750 MG in SODIUM CHLORIDE 0.9% 100 ML IV SCH ×3 (02:02→17:26)
[2019-03-30 05:43] LABS: Basophils # 0.1 10*3/uL (0.0-0.2); Basophils % 0.4 % (0.0-0.8); Eosinophils # 0.4 10*3/uL (0.0-0.87); Eosinophils % 3.2 % (0.00-10.9); Hematocrit 36.4 VOL% (35.7-47.0); Hemoglobin 10.9 GM/DL (12.0-16.0); Immature Granulocytes Absolute 0.11 #; Lymphocytes # 2.3 10*3/uL (1.4-4.0); Lymphocytes % 20.5 % (21.3-54.2); Mean Corpuscular HGB Conc 29.9 GM/DL (32-36); Mean Corpuscular Volume 99.7 FL (87-102); Mean Platelet Volume 9.6 FL (9.6-12.0); Monocytes % 7.9 % (1.7-12.7); Platelet Count 150 T/CUMM (130-400); Red Blood Count 3.65 MC/CUMM (3.8-5.5); Red Cell Distribution Width 16.7 % (9.3-17.3); White Blood Count 11.3 T/CUMM (4-12)
[2019-03-30] MEDS: HEPARIN 5,000 UNIT/1 ML VIAL SUBCUT SCH ×3 (05:43→20:38)
[2019-03-30 05:56] LABS: Calcium 7.9 MG/DL (8.5-10.1); Osmolality,Calculated 286.5 MOS/KG (273-304)
[2019-03-30] MEDS: INSULIN REGULAR 100 UNIT/ML SUBCUT SCH ×4 (07:47→20:38)
[2019-03-30] MEDS: SEVELAMER CARBONATE 800 MG TABLET PO SCH ×3 (09:56→17:26)
[2019-03-30] MEDS: METOPROLOL TARTRATE 25 MG TABLET PO SCH ×2 (09:56→20:39)
[2019-03-30] MEDS ORDERED: SEVELAMER CARBONATE 800 MG TABLET PO SCH (15:00)
[2019-03-30] MEDS: FLUTICASONE 50 MCG NASAL SPRAY 16 GM BOTTLE BOTH NARES SCH (21:21)
[2019-03-31] MEDS: VALPROIC ACID INJ 750 MG in SODIUM CHLORIDE 0.9% 100 ML IV SCH ×3 (01:10→17:21)
[2019-03-31 03:37] LABS: Basophils % 0.4 % (0.0-0.8); Eosinophils # 0.4 10*3/uL (0.0-0.87); Eosinophils % 3.9 % (0.00-10.9); Hemoglobin 10.7 GM/DL (12.0-16.0); Immature Granulocytes Absolute 0.09 #; Lymphocytes # 2.7 10*3/uL (1.4-4.0); Lymphocytes % 28.3 % (21.3-54.2); Mean Corpuscular HGB Conc 29.6 GM/DL (32-36); Mean Corpuscular Volume 99.7 FL (87-102); Monocytes % 9.2 % (1.7-12.7); Neutrophils % 57.2 % (38.7-73.9); Platelet Count 146 T/CUMM (130-400); Red Blood Count 3.63 MC/CUMM (3.8-5.5); Red Cell Distribution Width 16.8 % (9.3-17.3); White Blood Count 9.4 T/CUMM (4-12)
[2019-03-31 03:42] LABS: Hematocrit 36.1 VOL% (35.7-47.0)
[2019-03-31 04:00] LABS: Osmolality,Calculated 297.4 MOS/KG (273-304)
[2019-03-31] MEDS: HEPARIN 5,000 UNIT/1 ML VIAL SUBCUT SCH ×3 (04:48→20:41)
[2019-03-31] MEDS: INSULIN REGULAR 100 UNIT/ML SUBCUT SCH ×4 (07:34→20:41)
[2019-03-31] MEDS: FLUTICASONE 50 MCG NASAL SPRAY 16 GM BOTTLE BOTH NARES SCH ×2 (10:24→20:41)
[2019-03-31] MEDS: SEVELAMER CARBONATE 800 MG TABLET PO SCH ×3 (10:25→17:21)
[2019-03-31] MEDS: CYANOCOBALAMIN 100 MCG TABLET PO SCH (10:25)
[2019-03-31] MEDS: amLODIPine 10 MG TABLET PO SCH (10:25)
[2019-03-31] MEDS: DICYCLOMINE 20 MG TABLET PO SCH (10:25)
[2019-03-31] MEDS: MULTIVITAMIN (OCUVITE) TABLET PO SCH (10:25)
[2019-03-31] MEDS: METOPROLOL TARTRATE 25 MG TABLET PO SCH ×2 (10:25→20:41)
[2019-03-31] MEDS: DEXTROSE 10% 250 ML BAG IV PRN (20:48)
[2019-04-01] MEDS: VALPROIC ACID INJ 750 MG in SODIUM CHLORIDE 0.9% 100 ML IV SCH ×2 (01:02→09:00)
[2019-04-01] MEDS: HEPARIN 5,000 UNIT/1 ML VIAL SUBCUT SCH ×3 (05:13→21:57)
[2019-04-01] MEDS: DEXTROSE 10% 250 ML BAG IV PRN (05:21)
[2019-04-01 06:08] LABS: Basophils # 0.1 10*3/uL (0.0-0.2); Basophils % 0.6 % (0.0-0.8); Eosinophils # 0.4 10*3/uL (0.0-0.87); Eosinophils % 3.5 % (0.00-10.9); Hematocrit 33.7 VOL% (35.7-47.0); Hemoglobin 10.3 GM/DL (12.0-16.0); Lymphocytes # 2.4 10*3/uL (1.4-4.0); Lymphocytes % 23.3 % (21.3-54.2); Mean Corpuscular HGB Conc 30.6 GM/DL (32-36); Mean Corpuscular Volume 98.5 FL (87-102); Neutrophils % 63.6 % (38.7-73.9); Platelet Count 173 T/CUMM (130-400); Red Blood Count 3.42 MC/CUMM (3.8-5.5); White Blood Count 10.3 T/CUMM (4-12)
[2019-04-01 06:47] LABS: Calcium 8.1 MG/DL (8.5-10.1); Osmolality,Calculated 314.3 MOS/KG (273-304)
[2019-04-01] MEDS: INSULIN REGULAR 100 UNIT/ML SUBCUT SCH ×4 (07:30→22:00)
[2019-04-01] MEDS: amLODIPine 10 MG TABLET PO SCH (08:45)
[2019-04-01] MEDS: MULTIVITAMIN (OCUVITE) TABLET PO SCH (08:45)
[2019-04-01] MEDS: CYANOCOBALAMIN 100 MCG TABLET PO SCH (08:45)
[2019-04-01] MEDS: DICYCLOMINE 20 MG TABLET PO SCH (08:45)
[2019-04-01] MEDS: METOPROLOL TARTRATE 25 MG TABLET PO SCH ×2 (08:45→21:58)
[2019-04-01] MEDS: SEVELAMER CARBONATE 800 MG TABLET PO SCH ×3 (08:45→20:04)
[2019-04-01] MEDS: FLUTICASONE 50 MCG NASAL SPRAY 16 GM BOTTLE BOTH NARES SCH ×2 (12:00→21:59)
[2019-04-01] MEDS: levETIRAcetam 250 MG TABLET PO SCH (21:57)
[2019-04-01] MEDS: DIVALPROEX 250 MG TABLET PO SCH (22:07)
[2019-04-02 04:24] VITALS: BP 153/79
[2019-04-02] MEDS: HEPARIN 5,000 UNIT/1 ML VIAL SUBCUT SCH ×2 (05:22→11:55)
[2019-04-02 05:54] LABS: Calcium 8.4 MG/DL (8.5-10.1); Osmolality,Calculated 301.8 MOS/KG (273-304)
[2019-04-02] MEDS: FLUTICASONE 50 MCG NASAL SPRAY 16 GM BOTTLE BOTH NARES SCH (11:20)
[2019-04-02] MEDS: CYANOCOBALAMIN 100 MCG TABLET PO SCH (11:20)
[2019-04-02] MEDS: DIVALPROEX 250 MG TABLET PO SCH (11:20)
[2019-04-02] MEDS: DICYCLOMINE 20 MG TABLET PO SCH (11:20)
[2019-04-02] MEDS: METOPROLOL TARTRATE 25 MG TABLET PO SCH (11:20)
[2019-04-02] MEDS: amLODIPine 10 MG TABLET PO SCH (11:20)
[2019-04-02] MEDS: MULTIVITAMIN (OCUVITE) TABLET PO SCH (11:20)
[2019-04-02] MEDS: levETIRAcetam 250 MG TABLET PO SCH (11:20)
[2019-04-02] MEDS: INSULIN REGULAR 100 UNIT/ML SUBCUT SCH ×2 (11:49→11:58)
[2019-04-02] MEDS: SEVELAMER CARBONATE 800 MG TABLET PO SCH (11:52)
== END 2019-04-02 14:48 | disposition home or self-care (01) | DRG 100 ==
LOC: EDUNIT# → EDBD → N.ED 09:25 → SUATTDRO 11:54 → N.ICU 11:54
PROVIDERS: ADMIT Internal Medicine Geriatric Medicine; ATTEND Internal Medicine Geriatric Medicine

== ENCOUNTER 2019-04-25 18:23 | Inpatient (IN) ==
[2019-04-25 19:25] LABS: Basophils # 0.1 10*3/uL (0.0-0.2); Basophils % 0.4 % (0.0-0.8); Hematocrit 29.7 VOL% (35.7-47.0); Hemoglobin 9.1 GM/DL (12.0-16.0); Immature Granulocytes % 1.4 %; Immature Granulocytes Absolute 0.35 #; Lymphocytes # 0.9 10*3/uL (1.4-4.0); Lymphocytes % 3.5 % (21.3-54.2); Mean Corpuscular HGB Conc 30.6 GM/DL (32-36); Mean Corpuscular Volume 100.7 FL (87-102); Mean Platelet Volume 9.7 FL (9.6-12.0); Monocytes % 7.4 % (1.7-12.7); Neutrophils % 87.3 % (38.7-73.9); Platelet Count 163 T/CUMM (130-400); Red Blood Count 2.95 MC/CUMM (3.8-5.5); Red Cell Distribution Width 16.5 % (9.3-17.3); White Blood Count 24.9 T/CUMM (4-12)
[2019-04-25 19:36] LABS: Alanine Aminotransferase < 9 U/L (13-56); Alkaline Phosphatase 50 U/L (45-117); Aspartate Amino Transferase 15 U/L (0-37); Blood Urea Nitrogen 17 MG/DL (7-18); Calcium 7.9 MG/DL (8.5-10.1); Glucose 101 MG/DL (74-106); Osmolality,Calculated 278.5 MOS/KG (273-304)
[2019-04-25 19:57] LABS: Lymphocytes 3 % (20-55); Microcytosis 1+; Segmented Neutrophils 90 % (50-85); Tear Drop Cells Few; Total Cells Counted 100
[2019-04-25 19:58] LABS: Platelet Estimate Adequate
[2019-04-25] MEDS ORDERED: VANCOMYCIN INJ 1,000 MG in SODIUM CHLORIDE 0.9% 250 ML IV STA (21:03)
[2019-04-25] MEDS ORDERED: CEFEPIME 1,000 MG in SODIUM CHLORIDE 0.9% 100 ML IV STA (21:03)
[2019-04-25] MEDS ORDERED: PROMETHAZINE 25 MG/1 ML VIAL IM PRN (21:25)
[2019-04-25] MEDS ORDERED: ONDANSETRON 4 MG/2 ML VIAL IV PRN (21:25)
[2019-04-25] MEDS ORDERED: DEXTROSE 50% 25 GM/50 ML VIAL IV PRN (21:25)
[2019-04-25] MEDS ORDERED: ACETAMINOPHEN 325 MG TABLET PO PRN (21:25)
[2019-04-25] MEDS ORDERED: GLUCAGON 1 MG VIAL IM PRN (21:25)
[2019-04-25] MEDS ORDERED: ENOXAPARIN 30 MG/0.3 ML SYRINGE SUBCUT SCH (21:30)
[2019-04-26] MEDS: FLUTICASONE 50 MCG NASAL SPRAY 16 GM BOTTLE BOTH NARES SCH ×3 (00:54→21:11)
[2019-04-26] MEDS: INSULIN REGULAR 100 UNIT/ML SUBCUT SCH ×5 (00:54→21:11)
[2019-04-26] MEDS: DIVALPROEX 250 MG TABLET PO SCH ×4 (00:55→21:11)
[2019-04-26] MEDS: levETIRAcetam 250 MG TABLET PO SCH ×4 (00:55→21:11)
[2019-04-26] MEDS: ALBUTEROL/IPRATROPIUM 3 ML NEB RESP TX SCH ×4 (01:26→19:20)
[2019-04-26] MEDS: METOPROLOL TARTRATE 25 MG TABLET PO SCH ×3 (02:17→21:11)
[2019-04-26] MEDS ORDERED: LEVOFLOXACIN INJ 750 MG in PREMIX 1 EACH IV SCH (06:00)
[2019-04-26 07:36] LABS: Basophils # 0.1 10*3/uL (0.0-0.2); Basophils % 0.5 % (0.0-0.8); Eosinophils % 0.2 % (0.00-10.9); Hematocrit 27.5 VOL% (35.7-47.0); Immature Granulocytes % 1.2 %; Immature Granulocytes Absolute 0.16 #; Lymphocytes # 0.9 10*3/uL (1.4-4.0); Lymphocytes % 6.4 % (21.3-54.2); Mean Corpuscular HGB Conc 30.2 GM/DL (32-36); Mean Corpuscular Volume 100.7 FL (87-102); Monocytes % 7.6 % (1.7-12.7); Neutrophils % 84.1 % (38.7-73.9); Red Blood Count 2.73 MC/CUMM (3.8-5.5); Red Cell Distribution Width 16.8 % (9.3-17.3); White Blood Count 13.2 T/CUMM (4-12)
[2019-04-26 07:43] LABS: Hemoglobin 8.3 GM/DL (12.0-16.0); Platelet Count 130 T/CUMM (130-400)
[2019-04-26 08:13] LABS: Calcium 7.9 MG/DL (8.5-10.1); Osmolality,Calculated 283.5 MOS/KG (273-304)
[2019-04-26] MEDS: amLODIPine 10 MG TABLET PO SCH (09:49)
[2019-04-26] MEDS: DICYCLOMINE 10 MG CAPSULE PO SCH (09:49)
[2019-04-26] MEDS: MULTIVITAMIN (BEROCCA) TABLET PO SCH (09:49)
[2019-04-26] MEDS: PANTOPRAZOLE 40 MG TABLET PO SCH (09:49)
[2019-04-26] MEDS: SEVELAMER CARBONATE 800 MG TABLET PO SCH ×3 (09:49→16:29)
[2019-04-26] MEDS: ALLOPURINOL 100 MG TABLET PO SCH (09:49)
[2019-04-26] MEDS: FERROUS SULFATE 325 MG TABLET PO SCH (09:49)
[2019-04-26] MEDS: CYANOCOBALAMIN 100 MCG TABLET PO SCH (09:49)
[2019-04-26 11:38] LABS: ABG Base Excess 6.9 MMOL/L (-2.5-2.5); ABG HCO3 31.3 MMOL/L (20-26); ABG Oxygen Saturation 95.9 % (95-100); ABG PCO2 44.4 MM HG (35-48); ABG PH 7.466 (7.35-7.45); ABG PO2 85.7 MM HG (80-95); ABG TCO2 32.7 MMOL/L (23-27)
[2019-04-26] MEDS ORDERED: VANCOMYCIN INJ 500 MG in SODIUM CHLORIDE 0.9% 100 ML IV PRN (17:00)
[2019-04-26] MEDS: CEFEPIME 1,000 MG in SODIUM CHLORIDE 0.9% 100 ML IV SCH (21:11)
[2019-04-27] MEDS: ALBUTEROL/IPRATROPIUM 3 ML NEB RESP TX SCH ×4 (01:42→20:26)
[2019-04-27 05:59] LABS: Basophils % 0.3 % (0.0-0.8); Eosinophils # 0.5 10*3/uL (0.0-0.87); Eosinophils % 4.7 % (0.00-10.9); Hemoglobin 7.4 GM/DL (12.0-16.0); Immature Granulocytes % 1.2 %; Immature Granulocytes Absolute 0.13 #; Lymphocytes % 8.8 % (21.3-54.2); Mean Corpuscular HGB Conc 29.6 GM/DL (32-36); Mean Corpuscular Volume 101.6 FL (87-102); Mean Platelet Volume 10.4 FL (9.6-12.0); Monocytes % 9.7 % (1.7-12.7); Neutrophils % 75.3 % (38.7-73.9); Platelet Count 145 T/CUMM (130-400); Red Blood Count 2.46 MC/CUMM (3.8-5.5); Red Cell Distribution Width 16.8 % (9.3-17.3); White Blood Count 11.2 T/CUMM (4-12)
[2019-04-27 06:26] LABS: Calcium 8.1 MG/DL (8.5-10.1); Osmolality,Calculated 288.5 MOS/KG (273-304)
[2019-04-27] MEDS: INSULIN REGULAR 100 UNIT/ML SUBCUT SCH ×4 (08:08→20:25)
[2019-04-27] MEDS: MAGNESIUM OXIDE 400 MG TABLET PO SCH (08:33)
[2019-04-27] MEDS: CYANOCOBALAMIN 100 MCG TABLET PO SCH (08:33)
[2019-04-27] MEDS: levETIRAcetam 250 MG TABLET PO SCH ×2 (08:34→20:25)
[2019-04-27] MEDS: SEVELAMER CARBONATE 800 MG TABLET PO SCH ×3 (08:34→18:13)
[2019-04-27] MEDS: MULTIVITAMIN (BEROCCA) TABLET PO SCH (08:36)
[2019-04-27] MEDS: DICYCLOMINE 10 MG CAPSULE PO SCH (08:36)
[2019-04-27] MEDS: ALLOPURINOL 100 MG TABLET PO SCH (08:37)
[2019-04-27] MEDS: METOPROLOL TARTRATE 25 MG TABLET PO SCH ×2 (08:37→20:25)
[2019-04-27] MEDS: PANTOPRAZOLE 40 MG TABLET PO SCH (08:37)
[2019-04-27] MEDS: DIVALPROEX 250 MG TABLET PO SCH ×2 (08:38→20:25)
[2019-04-27] MEDS: FERROUS SULFATE 325 MG TABLET PO SCH (08:38)
[2019-04-27] MEDS: amLODIPine 10 MG TABLET PO SCH (08:39)
[2019-04-27] MEDS: HEPARIN 5,000 UNIT/1 ML VIAL SUBCUT SCH ×2 (08:40→20:26)
[2019-04-27] MEDS: FLUTICASONE 50 MCG NASAL SPRAY 16 GM BOTTLE BOTH NARES SCH ×2 (08:46→20:27)
[2019-04-27] MEDS ORDERED: HEPARIN 10,000 UNIT/10 ML VIAL IV PRN (14:34)
[2019-04-27] MEDS ORDERED: VANCOMYCIN INJ 500 MG in SODIUM CHLORIDE 0.9% 100 ML IV ONE (17:00)
[2019-04-27] MEDS: CEFEPIME 1,000 MG in SODIUM CHLORIDE 0.9% 100 ML IV SCH (20:26)
[2019-04-28] MEDS: ALBUTEROL/IPRATROPIUM 3 ML NEB RESP TX SCH ×4 (02:22→19:44)
[2019-04-28 05:40] LABS: Basophils % 0.2 % (0.0-0.8); Eosinophils # 0.5 10*3/uL (0.0-0.87); Eosinophils % 5.4 % (0.00-10.9); Hematocrit 22.4 VOL% (35.7-47.0); Hemoglobin 6.6 GM/DL (12.0-16.0); Immature Granulocytes Absolute 0.09 #; Lymphocytes # 1.3 10*3/uL (1.4-4.0); Lymphocytes % 13.7 % (21.3-54.2); Mean Corpuscular HGB Conc 29.5 GM/DL (32-36); Mean Corpuscular Volume 102.8 FL (87-102); Mean Platelet Volume 10.3 FL (9.6-12.0); Monocytes % 13.9 % (1.7-12.7); Neutrophils % 65.8 % (38.7-73.9); Platelet Count 127 T/CUMM (130-400); Red Blood Count 2.18 MC/CUMM (3.8-5.5); Red Cell Distribution Width 16.7 % (9.3-17.3); White Blood Count 9.2 T/CUMM (4-12)
[2019-04-28 06:06] LABS: Calcium 8.1 MG/DL (8.5-10.1)
[2019-04-28] MEDS: INSULIN REGULAR 100 UNIT/ML SUBCUT SCH ×4 (08:28→21:01)
[2019-04-28] MEDS: SEVELAMER CARBONATE 800 MG TABLET PO SCH ×3 (10:08→16:11)
[2019-04-28] MEDS: levETIRAcetam 250 MG TABLET PO SCH ×2 (10:08→21:00)
[2019-04-28] MEDS: DIVALPROEX 250 MG TABLET PO SCH ×2 (10:08→21:00)
[2019-04-28] MEDS: MULTIVITAMIN (BEROCCA) TABLET PO SCH (10:09)
[2019-04-28] MEDS: DICYCLOMINE 10 MG CAPSULE PO SCH (10:09)
[2019-04-28] MEDS: FLUTICASONE 50 MCG NASAL SPRAY 16 GM BOTTLE BOTH NARES SCH ×2 (10:09→21:01)
[2019-04-28] MEDS: CYANOCOBALAMIN 100 MCG TABLET PO SCH (10:09)
[2019-04-28] MEDS: PANTOPRAZOLE 40 MG TABLET PO SCH (10:09)
[2019-04-28] MEDS: ALLOPURINOL 100 MG TABLET PO SCH (10:09)
[2019-04-28] MEDS: FERROUS SULFATE 325 MG TABLET PO SCH (10:09)
[2019-04-28] MEDS: HEPARIN 5,000 UNIT/1 ML VIAL SUBCUT SCH ×2 (10:13→21:00)
[2019-04-28] MEDS: METOPROLOL TARTRATE 25 MG TABLET PO SCH ×2 (10:15→21:00)
[2019-04-28] MEDS: amLODIPine 10 MG TABLET PO SCH (10:15)
[2019-04-28] MEDS: AMOXICILLIN/CLAV 500 MG TABLET PO SCH (16:10)
[2019-04-29] MEDS: ALBUTEROL/IPRATROPIUM 3 ML NEB RESP TX SCH ×4 (00:56→19:27)
[2019-04-29 05:55] LABS: Basophils % 0.2 % (0.0-0.8); Eosinophils # 0.5 10*3/uL (0.0-0.87); Eosinophils % 5.9 % (0.00-10.9); Hematocrit 23.6 VOL% (35.7-47.0); Hemoglobin 6.9 GM/DL (12.0-16.0); Immature Granulocytes % 1.4 %; Immature Granulocytes Absolute 0.13 #; Lymphocytes # 1.8 10*3/uL (1.4-4.0); Lymphocytes % 19.9 % (21.3-54.2); Mean Corpuscular HGB Conc 29.2 GM/DL (32-36); Mean Corpuscular Volume 102.2 FL (87-102); Mean Platelet Volume 10.4 FL (9.6-12.0); Monocytes % 14.1 % (1.7-12.7); Neutrophils % 58.5 % (38.7-73.9); Platelet Count 148 T/CUMM (130-400); Red Blood Count 2.31 MC/CUMM (3.8-5.5); Red Cell Distribution Width 16.5 % (9.3-17.3); White Blood Count 9.1 T/CUMM (4-12)
[2019-04-29 06:24] LABS: Calcium 8.4 MG/DL (8.5-10.1); Osmolality,Calculated 292.3 MOS/KG (273-304)
[2019-04-29 06:35] LABS: Calcium 8.2 MG/DL (8.5-10.1); Osmolality,Calculated 290.4 MOS/KG (273-304); Thyroid Stimulating Hormone 3.33 uIU/ml (0.358-3.74)
[2019-04-29 06:39] LABS: Folate 14.5 NG/ML (5.4-24.0)
[2019-04-29] MEDS: SEVELAMER CARBONATE 800 MG TABLET PO SCH ×3 (11:20→15:45)
[2019-04-29] MEDS: CYANOCOBALAMIN 100 MCG TABLET PO SCH (11:20)
[2019-04-29] MEDS: DIVALPROEX 250 MG TABLET PO SCH ×2 (11:20→21:44)
[2019-04-29] MEDS: MULTIVITAMIN (BEROCCA) TABLET PO SCH (11:20)
[2019-04-29] MEDS: AMOXICILLIN/CLAV 500 MG TABLET PO SCH (11:21)
[2019-04-29] MEDS: MAGNESIUM OXIDE 400 MG TABLET PO SCH (11:21)
[2019-04-29] MEDS: levETIRAcetam 250 MG TABLET PO SCH ×2 (11:23→21:44)
[2019-04-29] MEDS: ALLOPURINOL 100 MG TABLET PO SCH (11:24)
[2019-04-29] MEDS: FERROUS SULFATE 325 MG TABLET PO SCH (11:24)
[2019-04-29] MEDS: HEPARIN 5,000 UNIT/1 ML VIAL SUBCUT SCH ×2 (11:24→21:45)
[2019-04-29] MEDS: PANTOPRAZOLE 40 MG TABLET PO SCH (11:24)
[2019-04-29] MEDS: DICYCLOMINE 10 MG CAPSULE PO SCH (11:24)
[2019-04-29] MEDS: METOPROLOL TARTRATE 25 MG TABLET PO SCH ×2 (11:24→21:45)
[2019-04-29] MEDS: FLUTICASONE 50 MCG NASAL SPRAY 16 GM BOTTLE BOTH NARES SCH ×2 (11:34→21:46)
[2019-04-29] MEDS: INSULIN REGULAR 100 UNIT/ML SUBCUT SCH ×4 (11:35→21:45)
[2019-04-29] MEDS: amLODIPine 10 MG TABLET PO SCH (12:05)
[2019-04-29] MEDS ORDERED: PIPERACILLIN/TAZOBACTAM 2.25 MG in SODIUM CHLORIDE 0.9% 100 ML IV SCH (12:30)
[2019-04-29] MEDS: PIPERACILLIN/TAZOBACTAM 3,375 MG in SODIUM CHLORIDE 0.9% 100 ML IV SCH (13:35)
[2019-04-29] MEDS ORDERED: SODIUM CHLORIDE 0.9% 1,000 ML IV PRN (19:15)
[2019-04-30] MEDS: ALBUTEROL/IPRATROPIUM 3 ML NEB RESP TX SCH ×4 (00:24→18:54)
[2019-04-30] MEDS: PIPERACILLIN/TAZOBACTAM 3,375 MG in SODIUM CHLORIDE 0.9% 100 ML IV SCH ×2 (01:46→15:13)
[2019-04-30] MEDS: HEPARIN 5,000 UNIT/1 ML VIAL SUBCUT SCH ×2 (09:29→21:08)
[2019-04-30] MEDS: INSULIN REGULAR 100 UNIT/ML SUBCUT SCH ×3 (09:29→16:49)
[2019-04-30] MEDS: DIVALPROEX 250 MG TABLET PO SCH ×2 (09:30→21:07)
[2019-04-30] MEDS: levETIRAcetam 250 MG TABLET PO SCH ×2 (09:30→21:07)
[2019-04-30] MEDS: CYANOCOBALAMIN 100 MCG TABLET PO SCH (09:30)
[2019-04-30] MEDS: MULTIVITAMIN (BEROCCA) TABLET PO SCH (09:30)
[2019-04-30] MEDS: METOPROLOL TARTRATE 25 MG TABLET PO SCH ×2 (09:31→21:08)
[2019-04-30] MEDS: FERROUS SULFATE 325 MG TABLET PO SCH (09:31)
[2019-04-30] MEDS: DICYCLOMINE 10 MG CAPSULE PO SCH (09:31)
[2019-04-30] MEDS: PANTOPRAZOLE 40 MG TABLET PO SCH (09:31)
[2019-04-30] MEDS: ALLOPURINOL 100 MG TABLET PO SCH (09:31)
[2019-04-30] MEDS: SEVELAMER CARBONATE 800 MG TABLET PO SCH ×3 (09:31→15:35)
[2019-04-30] MEDS: FLUTICASONE 50 MCG NASAL SPRAY 16 GM BOTTLE BOTH NARES SCH ×2 (09:35→21:08)
[2019-05-01] MEDS: ALBUTEROL/IPRATROPIUM 3 ML NEB RESP TX SCH ×4 (00:29→19:27)
[2019-05-01] MEDS: INSULIN REGULAR 100 UNIT/ML SUBCUT SCH ×5 (01:15→23:19)
[2019-05-01] MEDS: PIPERACILLIN/TAZOBACTAM 3,375 MG in SODIUM CHLORIDE 0.9% 100 ML IV SCH ×2 (02:50→13:46)
[2019-05-01 05:14] LABS: Basophils % 0.3 % (0.0-0.8); Eosinophils # 0.4 10*3/uL (0.0-0.87); Eosinophils % 4.1 % (0.00-10.9); Hemoglobin 6.5 GM/DL (12.0-16.0); Immature Granulocytes % 4.8 %; Lymphocytes # 3.2 10*3/uL (1.4-4.0); Lymphocytes % 30.3 % (21.3-54.2); Mean Corpuscular HGB Conc 29.5 GM/DL (32-36); Mean Corpuscular Volume 101.9 FL (87-102); Mean Platelet Volume 9.9 FL (9.6-12.0); Monocytes % 14.7 % (1.7-12.7); Neutrophils % 45.8 % (38.7-73.9); Platelet Count 151 T/CUMM (130-400); Red Blood Count 2.16 MC/CUMM (3.8-5.5); Red Cell Distribution Width 16.7 % (9.3-17.3); White Blood Count 10.5 T/CUMM (4-12)
[2019-05-01 05:45] LABS: Calcium 7.8 MG/DL (8.5-10.1); Osmolality,Calculated 286.5 MOS/KG (273-304)
[2019-05-01] MEDS: HEPARIN 5,000 UNIT/1 ML VIAL SUBCUT SCH ×2 (10:04→21:19)
[2019-05-01] MEDS: PANTOPRAZOLE 40 MG TABLET PO SCH (10:07)
[2019-05-01] MEDS: DICYCLOMINE 10 MG CAPSULE PO SCH (10:07)
[2019-05-01] MEDS: levETIRAcetam 250 MG TABLET PO SCH ×2 (10:07→21:18)
[2019-05-01] MEDS: MULTIVITAMIN (BEROCCA) TABLET PO SCH (10:07)
[2019-05-01] MEDS: FERROUS SULFATE 325 MG TABLET PO SCH (10:07)
[2019-05-01] MEDS: ALLOPURINOL 100 MG TABLET PO SCH (10:07)
[2019-05-01] MEDS: DIVALPROEX 250 MG TABLET PO SCH ×2 (10:08→21:18)
[2019-05-01] MEDS: METOPROLOL TARTRATE 25 MG TABLET PO SCH ×2 (10:08→21:18)
[2019-05-01] MEDS: CYANOCOBALAMIN 100 MCG TABLET PO SCH (10:08)
[2019-05-01] MEDS: SEVELAMER CARBONATE 800 MG TABLET PO SCH ×3 (10:08→17:18)
[2019-05-01] MEDS: FLUTICASONE 50 MCG NASAL SPRAY 16 GM BOTTLE BOTH NARES SCH ×2 (10:08→21:23)
[2019-05-01] MEDS: MAGNESIUM OXIDE 400 MG TABLET PO SCH (10:08)
[2019-05-01] MEDS: LORazepam 2 MG/1 ML VIAL IV PRN (21:29)
[2019-05-02] MEDS: ALBUTEROL/IPRATROPIUM 3 ML NEB RESP TX SCH ×4 (00:11→19:18)
[2019-05-02] MEDS: PIPERACILLIN/TAZOBACTAM 3,375 MG in SODIUM CHLORIDE 0.9% 100 ML IV SCH ×2 (03:03→15:06)
[2019-05-02 05:08] LABS: Basophils # 0.1 10*3/uL (0.0-0.2); Basophils % 0.4 % (0.0-0.8); Eosinophils # 0.5 10*3/uL (0.0-0.87); Eosinophils % 4.3 % (0.00-10.9); Hematocrit 22.9 VOL% (35.7-47.0); Hemoglobin 6.7 GM/DL (12.0-16.0); Immature Granulocytes % 4.9 %; Immature Granulocytes Absolute 0.57 #; Lymphocytes # 2.7 10*3/uL (1.4-4.0); Lymphocytes % 23.4 % (21.3-54.2); Mean Corpuscular HGB Conc 29.3 GM/DL (32-36); Mean Corpuscular Volume 101.3 FL (87-102); Mean Platelet Volume 9.7 FL (9.6-12.0); Monocytes % 14.8 % (1.7-12.7); Neutrophils % 52.2 % (38.7-73.9); Platelet Count 147 T/CUMM (130-400); Red Blood Count 2.26 MC/CUMM (3.8-5.5); Red Cell Distribution Width 16.7 % (9.3-17.3); White Blood Count 11.5 T/CUMM (4-12)
[2019-05-02 05:24] LABS: Calcium 8.4 MG/DL (8.5-10.1); Osmolality,Calculated 298.3 MOS/KG (273-304)
[2019-05-02 05:30] LABS: Eosinophils 9 % (0-10); Hypochromasia 1+; Lymphocytes 30 % (20-55); Platelet Estimate Normal; Segmented Neutrophils 54 % (50-85); Total Cells Counted 100
[2019-05-02] MEDS: LORazepam 2 MG/1 ML VIAL IV PRN ×2 (05:36→22:38)
[2019-05-02] MEDS: INSULIN REGULAR 100 UNIT/ML SUBCUT SCH ×4 (08:07→23:56)
[2019-05-02] MEDS: DIVALPROEX 250 MG TABLET PO SCH ×2 (08:36→20:12)
[2019-05-02] MEDS: CYANOCOBALAMIN 100 MCG TABLET PO SCH (08:36)
[2019-05-02] MEDS: FERROUS SULFATE 325 MG TABLET PO SCH (08:36)
[2019-05-02] MEDS: METOPROLOL TARTRATE 25 MG TABLET PO SCH ×2 (08:36→20:12)
[2019-05-02] MEDS: levETIRAcetam 250 MG TABLET PO SCH ×2 (08:37→20:11)
[2019-05-02] MEDS: PANTOPRAZOLE 40 MG TABLET PO SCH (08:39)
[2019-05-02] MEDS: FLUTICASONE 50 MCG NASAL SPRAY 16 GM BOTTLE BOTH NARES SCH ×2 (08:39→20:15)
[2019-05-02] MEDS: SEVELAMER CARBONATE 800 MG TABLET PO SCH ×3 (08:39→16:49)
[2019-05-02] MEDS: HEPARIN 5,000 UNIT/1 ML VIAL SUBCUT SCH ×2 (08:39→20:12)
[2019-05-02] MEDS: DICYCLOMINE 10 MG CAPSULE PO SCH (08:39)
[2019-05-02] MEDS: MULTIVITAMIN (BEROCCA) TABLET PO SCH (08:39)
[2019-05-02] MEDS: ALLOPURINOL 100 MG TABLET PO SCH (08:39)
[2019-05-02] MEDS ORDERED: EPOETIN BETA METHOXY PEG IV SCH (09:00)
[2019-05-02] MEDS ORDERED: IRON SUCROSE 100 MG/5 ML VIAL IV SCH (09:00)
[2019-05-02] MEDS ORDERED: EPOETIN ALFA 2,000 UNIT/1 ML VIAL SUBCUT ONE (11:30)
[2019-05-02] MEDS ORDERED: ceFAZolin 2,000 MG in PREMIX 1 EACH IV ONE (17:00)
[2019-05-03] MEDS: ALBUTEROL/IPRATROPIUM 3 ML NEB RESP TX SCH ×3 (01:52→12:17)
[2019-05-03] MEDS: PIPERACILLIN/TAZOBACTAM 3,375 MG in SODIUM CHLORIDE 0.9% 100 ML IV SCH (02:39)
[2019-05-03 05:19] LABS: Basophils # 0.1 10*3/uL (0.0-0.2); Basophils % 0.4 % (0.0-0.8); Eosinophils # 0.6 10*3/uL (0.0-0.87); Eosinophils % 3.6 % (0.00-10.9); Immature Granulocytes % 8.6 %; Immature Granulocytes Absolute 1.29 #; Lymphocytes # 3.4 10*3/uL (1.4-4.0); Lymphocytes % 22.7 % (21.3-54.2); Mean Corpuscular HGB Conc 31.3 GM/DL (32-36); Mean Corpuscular Volume 96.7 FL (87-102); Mean Platelet Volume 9.7 FL (9.6-12.0); Monocytes % 12.7 % (1.7-12.7); Platelet Count 144 T/CUMM (130-400); Red Cell Distribution Width 17.4 % (9.3-17.3)
[2019-05-03 05:40] LABS: Calcium 8.7 MG/DL (8.5-10.1); Osmolality,Calculated 283.5 MOS/KG (273-304); Red Blood Count 3.31 MC/CUMM (3.8-5.5); White Blood Count 15.1 T/CUMM (4-12)
[2019-05-03] MEDS: LORazepam 2 MG/1 ML VIAL IV PRN (05:40)
[2019-05-03 05:48] LABS: Band Neutrophils 1 % (0-10); Eosinophils 6 % (0-10); Lymphocytes 24 % (20-55); Nucleated Red Blood Cells 1 (0-5); Segmented Neutrophils 59 % (50-85); Total Cells Counted 100
[2019-05-03 05:49] LABS: Hypochromasia 1+; Ovalocytes Slight; Platelet Estimate Normal
[2019-05-03] MEDS: INSULIN REGULAR 100 UNIT/ML SUBCUT SCH ×2 (08:38→12:32)
[2019-05-03] MEDS: CYANOCOBALAMIN 100 MCG TABLET PO SCH (08:39)
[2019-05-03] MEDS: ALLOPURINOL 100 MG TABLET PO SCH (08:39)
[2019-05-03] MEDS: SEVELAMER CARBONATE 800 MG TABLET PO SCH ×2 (08:39→12:32)
[2019-05-03] MEDS: DICYCLOMINE 10 MG CAPSULE PO SCH (08:39)
[2019-05-03] MEDS: DIVALPROEX 250 MG TABLET PO SCH (08:39)
[2019-05-03] MEDS: levETIRAcetam 250 MG TABLET PO SCH (08:39)
[2019-05-03] MEDS: MAGNESIUM OXIDE 400 MG TABLET PO SCH (08:39)
[2019-05-03] MEDS: PANTOPRAZOLE 40 MG TABLET PO SCH (08:39)
[2019-05-03] MEDS: METOPROLOL TARTRATE 25 MG TABLET PO SCH (08:40)
[2019-05-03] MEDS: HEPARIN 5,000 UNIT/1 ML VIAL SUBCUT SCH (08:40)
[2019-05-03] MEDS: FERROUS SULFATE 325 MG TABLET PO SCH (08:40)
[2019-05-03] MEDS: MULTIVITAMIN (BEROCCA) TABLET PO SCH (08:40)
[2019-05-03] MEDS: FLUTICASONE 50 MCG NASAL SPRAY 16 GM BOTTLE BOTH NARES SCH (09:05)
[2019-05-03 14:13] VITALS: BP 120/66
[2019-05-03] MEDS ORDERED: AMOXICILLIN/CLAV ES 600 125 ML/BOTTLE PO SCH (21:00)
[2019-05-04] MEDS ORDERED: ceFAZolin 3,000 MG in SYRINGE 1 EACH IV SCH (17:00)
[2019-05-07] MEDS ORDERED: ceFAZolin 2,000 MG in PREMIX 1 EACH IV SCH (17:00)
== END 2019-05-03 15:15 | DRG 193 ==
LOC: EDUNIT# → N.ED 18:23 → N.EDINP 21:25 → SUATTDRO 21:25 → N.5E 21:56
PROVIDERS: ADMIT Family Medicine; ATTEND Hospitalist

== ENCOUNTER 2019-07-20 13:06 | Inpatient (IN) ==
[2019-07-20 14:12] LABS: Basophils % 0.2 % (0.0-0.8); Eosinophils # 0.2 10*3/uL (0.0-0.87); Eosinophils % 1.8 % (0.00-10.9); Hematocrit 33.4 VOL% (35.7-47.0); Hemoglobin 10.7 GM/DL (12.0-16.0); Immature Granulocytes % 0.8 %; Immature Granulocytes Absolute 0.11 #; Lymphocytes # 2.6 10*3/uL (1.4-4.0); Lymphocytes % 19.6 % (21.3-54.2); Mean Corpuscular Volume 103.1 FL (87-102); Monocytes % 6.8 % (1.7-12.7); Neutrophils % 70.8 % (38.7-73.9); Platelet Count 191 T/CUMM (130-400); Red Blood Count 3.24 MC/CUMM (3.8-5.5); Red Cell Distribution Width 14.6 % (9.3-17.3); White Blood Count 13.1 T/CUMM (4-12)
[2019-07-20 14:29] LABS: Alanine Aminotransferase 14 U/L (13-56); Albumin 2.2 G/DL (3.4-5.0); Alkaline Phosphatase 59 U/L (45-117); Aspartate Amino Transferase 21 U/L (0-37); Bilirubin,Total < 0.39 MG/DL (0.2-1.0); Blood Urea Nitrogen 63 MG/DL (7-18); Calcium 9.2 MG/DL (8.5-10.1); Estimated Glom Filtration Rate 8 ML/MIN; Glucose 89 MG/DL (74-106); Osmolality,Calculated 295.4 MOS/KG (273-304); Total Protein 5.4 G/DL (6.4-8.3)
[2019-07-20] MEDS ORDERED: ACETAMINOPHEN 325 MG TABLET PO PRN ×2 (15:39→15:46)
[2019-07-20] MEDS ORDERED: ALBUTEROL 2.5 MG/3 ML NEB RESP TX PRN (15:44)
[2019-07-20 16:10] LABS: Risk Ratio 2.5; Thyroid Stimulating Hormone 4.23 uIU/ml (0.358-3.74); VLDL CHOLESTEROL 18.8 MG/DL
[2019-07-20] MEDS: HEPARIN 5,000 UNIT/1 ML VIAL SUBCUT SCH ×2 (18:22→23:42)
[2019-07-20] MEDS: PIPERACILLIN/TAZOBACTAM 3,375 MG in SODIUM CHLORIDE 0.9% 100 ML IV SCH (18:25)
[2019-07-20] MEDS: ALBUTEROL/IPRATROPIUM 3 ML NEB RESP TX SCH (19:35)
[2019-07-20] MEDS: levETIRAcetam 500 MG TABLET PO SCH (20:16)
[2019-07-20] MEDS: DIVALPROEX 250 MG TABLET PO SCH (20:16)
[2019-07-20] MEDS ORDERED: METOPROLOL TARTRATE 25 MG TABLET PO SCH (21:00)
[2019-07-20] MEDS: FLUTICASONE 50 MCG NASAL SPRAY 16 GM BOTTLE BOTH NARES SCH (21:00)
[2019-07-21] MEDS: ALBUTEROL/IPRATROPIUM 3 ML NEB RESP TX SCH ×2 (00:11→08:22)
[2019-07-21] MEDS: PIPERACILLIN/TAZOBACTAM 3,375 MG in SODIUM CHLORIDE 0.9% 100 ML IV SCH (04:16)
[2019-07-21 05:55] LABS: Basophils % 0.5 % (0.0-0.8); Eosinophils # 0.2 10*3/uL (0.0-0.87); Eosinophils % 2.7 % (0.00-10.9); Hemoglobin 9.1 GM/DL (12.0-16.0); Immature Granulocytes % 0.7 %; Immature Granulocytes Absolute 0.06 #; Lymphocytes # 3.1 10*3/uL (1.4-4.0); Lymphocytes % 34.8 % (21.3-54.2); Mean Corpuscular HGB Conc 31.4 GM/DL (32-36); Mean Corpuscular Volume 104.3 FL (87-102); Mean Platelet Volume 9.2 FL (9.6-12.0); Monocytes % 7.5 % (1.7-12.7); Neutrophils % 53.8 % (38.7-73.9); Platelet Count 165 T/CUMM (130-400); Red Blood Count 2.78 MC/CUMM (3.8-5.5); Red Cell Distribution Width 14.6 % (9.3-17.3); White Blood Count 8.8 T/CUMM (4-12)
[2019-07-21 06:19] LABS: Osmolality,Calculated 298.3 MOS/KG (273-304)
[2019-07-21 07:49] VITALS: BP 103/52
[2019-07-21] MEDS ORDERED: amLODIPine 10 MG TABLET PO SCH (09:00)
[2019-07-21] MEDS ORDERED: FERROUS SULFATE 325 MG TABLET PO SCH (09:00)
[2019-07-21] MEDS ORDERED: DICYCLOMINE 10 MG CAPSULE PO SCH (09:00)
[2019-07-21] MEDS ORDERED: ALLOPURINOL 100 MG TABLET PO SCH (09:00)
[2019-07-21] MEDS ORDERED: PANTOPRAZOLE 40 MG TABLET PO SCH (09:00)
[2019-07-21] MEDS ORDERED: AMOXICILLIN/CLAV 500 MG TABLET PO SCH (09:00)
[2019-07-21] MEDS ORDERED: SEVELAMER CARBONATE POWDER 2.4 GM PACK PO SCH (09:00)
[2019-07-21] MEDS ORDERED: CYANOCOBALAMIN 100 MCG TABLET PO SCH (09:00)
[2019-07-21] MEDS ORDERED: MULTIVITAMIN (BEROCCA) TABLET PO SCH (09:00)
[2019-07-21] MEDS: DIVALPROEX 250 MG TABLET PO SCH (09:06)
[2019-07-21] MEDS: levETIRAcetam 500 MG TABLET PO SCH (09:07)
[2019-07-21] MEDS: FLUTICASONE 50 MCG NASAL SPRAY 16 GM BOTTLE BOTH NARES SCH (09:10)
[2019-07-21] MEDS: HEPARIN 5,000 UNIT/1 ML VIAL SUBCUT SCH (09:10)
[2019-07-22] MEDS ORDERED: MAGNESIUM OXIDE 400 MG TABLET PO SCH (09:00)
[2019-07-25] MEDS ORDERED: IRON SUCROSE IV SCH (16:00)
== END 2019-07-21 11:59 | DRG 193 ==
LOC: EDBD → EDUNIT# → N.ED 13:06 → N.EDINP 15:40 → N.2E 16:32
PROVIDERS: ADMIT Internal Medicine; ATTEND Internal Medicine

== ENCOUNTER 2019-09-10 19:22 | Inpatient (IN) ==
[2019-09-10] MEDS ORDERED: SODIUM CHLORIDE 0.9% 500 ML IV STA (19:54)
[2019-09-10 20:30] LABS: Basophils # 0.1 10*3/uL (0.0-0.2); Basophils % 0.6 % (0.0-0.8); Eosinophils # 0.1 10*3/uL (0.0-0.87); Eosinophils % 1.3 % (0.00-10.9); Hematocrit 35.5 VOL% (35.7-47.0); Hemoglobin 11.4 GM/DL (12.0-16.0); Immature Granulocytes % 1.5 %; Immature Granulocytes Absolute 0.16 #; Lymphocytes # 1.7 10*3/uL (1.4-4.0); Lymphocytes % 16.4 % (21.3-54.2); Mean Corpuscular HGB Conc 32.1 GM/DL (32-36); Mean Corpuscular Volume 97.3 FL (87-102); Monocytes % 15.9 % (1.7-12.7); Neutrophils % 64.3 % (38.7-73.9); Platelet Count 156 T/CUMM (130-400); Red Blood Count 3.65 MC/CUMM (3.8-5.5); Red Cell Distribution Width 15.7 % (9.3-17.3); White Blood Count 10.4 T/CUMM (4-12)
[2019-09-10 20:52] LABS: Alanine Aminotransferase < 9 U/L (13-56); Albumin 1.9 G/DL (3.4-5.0); Alkaline Phosphatase 69 U/L (45-117); Aspartate Amino Transferase 15 U/L (0-37); Bilirubin,Total < 0.39 MG/DL (0.2-1.0); Blood Urea Nitrogen 41 MG/DL (7-18); CKMB % 12.8 %; Calcium 8.7 MG/DL (8.5-10.1); Estimated Glom Filtration Rate 20 ML/MIN; Glucose 80 MG/DL (74-106); Osmolality,Calculated 289.3 MOS/KG (273-304); Total Protein 5.4 G/DL (6.4-8.3); Troponin I < 0.015 NG/ML (0.00-0.045)
[2019-09-10 21:08] LABS: Band Neutrophils 1 % (0-10); Eosinophils 1 % (0-10); Lymphocytes 17 % (20-55); Segmented Neutrophils 67 % (50-85); Total Cells Counted 100
[2019-09-10 21:11] LABS: Barbiturates Screen,Urine Negative (Negative); Benzodiazepines Screen,Urine Negative (Negative); Cannabinoid Screen,Urine Negative (Negative); Opiate Screen,Urine Negative (Negative); Phencyclidine Screen,Urine Negative (Negative)
[2019-09-10 21:15] LABS: Apearance,Urine Slightly Hazy (Clear); Bacteria,Urine Occasional /HPF (Few); Bilirubin,Urine Negative (Negative); Blood, Urine Small mg/dL (Negative); Glucose,Urine (UA) Negative (Negative); Ketones,Urine 5 mg/dL (Negative); Nitrite,Urine Negative (Negative); Protein,Urine 100 MG/DL; RBC,Urine 2 /HPF (0-4); Squamous Epithelial Cell,Urine Occasional /HPF (0-10); Urine Color Yellow (Yellow); Urine Specific Gravity 1.012 (1.001-1.035); Urine Urobilinogen < 2.0 EU/DL (0.2-1.0); WBC,Urine 67 /HPF (0-6)
[2019-09-10 21:17] LABS: Platelet Estimate Adequate
[2019-09-10] MEDS ORDERED: LEVOFLOXACIN INJ 750 MG in PREMIX 1 EACH IV STA (21:17)
[2019-09-11 00:30] LABS: INR 1.1; PT Patient Result 12.2 SECS (9.6-12.2)
[2019-09-11] MEDS ORDERED: BISACODYL 5 MG TABLET PO PRN (01:15)
[2019-09-11] MEDS ORDERED: GLUCAGON 1 MG VIAL IM PRN (01:15)
[2019-09-11] MEDS ORDERED: ONDANSETRON 4 MG/2 ML VIAL IV PRN (01:15)
[2019-09-11] MEDS ORDERED: DEXTROSE 50% 25 GM/50 ML SYRINGE IV PRN (01:15)
[2019-09-11] MEDS: PIPERACILLIN/TAZOBACTAM 3,375 MG in SODIUM CHLORIDE 0.9% 100 ML IV SCH ×2 (02:03→21:23)
[2019-09-11] MEDS: ACETAMINOPHEN 325 MG TABLET PO PRN ×2 (04:56→14:05)
[2019-09-11 05:22] LABS: Basophils # 0.1 10*3/uL (0.0-0.2); Basophils % 0.6 % (0.0-0.8); Eosinophils # 0.2 10*3/uL (0.0-0.87); Eosinophils % 1.6 % (0.00-10.9); Hematocrit 37.2 VOL% (35.7-47.0); Hemoglobin 11.9 GM/DL (12.0-16.0); Immature Granulocytes % 1.3 %; Immature Granulocytes Absolute 0.13 #; Lymphocytes # 2.6 10*3/uL (1.4-4.0); Lymphocytes % 25.5 % (21.3-54.2); Mean Corpuscular Volume 97.9 FL (87-102); Mean Platelet Volume 9.7 FL (9.6-12.0); Monocytes % 16.5 % (1.7-12.7); Neutrophils % 54.5 % (38.7-73.9); Platelet Count 170 T/CUMM (130-400); White Blood Count 10.3 T/CUMM (4-12)
[2019-09-11 05:54] LABS: Osmolality,Calculated 286.5 MOS/KG (273-304); Thyroid Stimulating Hormone 7.14 uIU/ml (0.358-3.74)
[2019-09-11 05:57] LABS: Eosinophils 3 % (0-10); Hypochromasia 1+; Lymphocytes 24 % (20-55); Ovalocytes Slight; Platelet Estimate Adequate; Segmented Neutrophils 51 % (50-85); Total Cells Counted 100
[2019-09-11] MEDS ORDERED: ALBUTEROL/IPRATROPIUM 3 ML NEB RESP TX PRN (13:46)
[2019-09-11] MEDS ORDERED: ACETAMINOPHEN 325 MG TABLET PO PRN (13:46)
[2019-09-11] MEDS ORDERED: POLYETHYLENE GLYCOL POWDER 17 GM PACK PO PRN (13:58)
[2019-09-11] MEDS ORDERED: SODIUM CHLORIDE 0.9% 1,000 ML IV SCH (14:00)
[2019-09-11] MEDS ORDERED: SODIUM CHLORIDE 0.9% 500 ML IV ONE (14:00)
[2019-09-11 14:19] LABS: Free T4 (Free Thyroxine) 0.98 NG/DL (0.76-1.46)
[2019-09-11] MEDS: SEVELAMER CARBONATE 800 MG TABLET PO SCH (18:25)
[2019-09-11] MEDS: DIVALPROEX 250 MG TABLET PO SCH (21:23)
[2019-09-11] MEDS: levETIRAcetam 250 MG TABLET PO SCH (21:23)
[2019-09-11] MEDS: FLUTICASONE 50 MCG NASAL SPRAY 16 GM BOTTLE BOTH NARES SCH (21:23)
[2019-09-12 04:58] LABS: Basophils # 0.1 10*3/uL (0.0-0.2); Basophils % 0.5 % (0.0-0.8); Eosinophils # 0.3 10*3/uL (0.0-0.87); Eosinophils % 2.5 % (0.00-10.9); Hematocrit 34.8 VOL% (35.7-47.0); Hemoglobin 11.2 GM/DL (12.0-16.0); Immature Granulocytes % 1.1 %; Immature Granulocytes Absolute 0.12 #; Lymphocytes # 3.7 10*3/uL (1.4-4.0); Lymphocytes % 33.9 % (21.3-54.2); Mean Corpuscular HGB Conc 32.2 GM/DL (32-36); Mean Corpuscular Volume 96.9 FL (87-102); Mean Platelet Volume 9.4 FL (9.6-12.0); Monocytes % 12.3 % (1.7-12.7); Neutrophils % 49.7 % (38.7-73.9); Platelet Count 163 T/CUMM (130-400); Red Blood Count 3.59 MC/CUMM (3.8-5.5); White Blood Count 10.9 T/CUMM (4-12)
[2019-09-12 05:25] LABS: Calcium 9.1 MG/DL (8.5-10.1); Osmolality,Calculated 286.7 MOS/KG (273-304)
[2019-09-12] MEDS ORDERED: SEVELAMER CARBONATE POWDER 2.4 GM PACK PO SCH (09:00)
[2019-09-12] MEDS ORDERED: DICYCLOMINE 10 MG CAPSULE PO SCH (09:00)
[2019-09-12] MEDS ORDERED: allopurinoL 100 MG TABLET PO SCH (09:00)
[2019-09-12] MEDS ORDERED: FERROUS SULFATE 325 MG TABLET PO SCH (09:00)
[2019-09-12] MEDS ORDERED: CYANOCOBALAMIN 100 MCG TABLET PO SCH (09:00)
[2019-09-12] MEDS: PIPERACILLIN/TAZOBACTAM 3,375 MG in SODIUM CHLORIDE 0.9% 100 ML IV SCH (09:08)
[2019-09-12] MEDS: levETIRAcetam 250 MG TABLET PO SCH (09:11)
[2019-09-12] MEDS: DIVALPROEX 250 MG TABLET PO SCH (09:11)
[2019-09-12] MEDS: SEVELAMER CARBONATE 800 MG TABLET PO SCH ×2 (09:11→11:53)
[2019-09-12] MEDS: FLUTICASONE 50 MCG NASAL SPRAY 16 GM BOTTLE BOTH NARES SCH (09:11)
[2019-09-12] MEDS ORDERED: SODIUM CHLORIDE 0.9% 500 ML IV ONE (10:00)
[2019-09-12 12:26] VITALS: BP 102/62
[2019-09-13] MEDS ORDERED: MAGNESIUM OXIDE 400 MG TABLET PO SCH (09:00)
== END 2019-09-12 11:53 | DRG 689 ==
LOC: EDUNIT# → EDBD → N.ED 19:22 → N.EDINP 23:23 → N.2E 09-11 00:36
PROVIDERS: ADMIT Internal Medicine; ATTEND Internal Medicine